=== PATIENT | male | born 1975 | race Caucasian/White ===

== ENCOUNTER 2023-09-27 14:31 | Outpatient (OUT) | payer OTHER, SELFPAY ==
--- NOTE | 2023-09-27 14:51 | XR_ITS ---
The [address] [address] Patient Name: MULU RODRIGUEZ MRN: [id number] date: 1975 Sex: M Assigned Patient Location: [facility] Current Patient Location: Accession/Order Number: [id number] Exam Date: 09/27/2023 14:57 Report Date: 09/28/2023 08:44 At the request of: SHAN PATTON Procedure: XR chest 2V EXAM: CHEST 2 VIEWS HISTORY: acute cough R05.1 TECHNIQUE: PA and lateral views chest. COMPARISON: None. FINDINGS: Small calcified right lower lung granuloma is seen, with calcified mediastinal and hilar lymph nodes. There is no focal lung consolidation, pleural effusion or pneumothorax. No peribronchial cuffing. Pulmonary vasculature is within normal limits. The cardiomediastinal silhouette is normal. There are degenerative changes of the spine. XR/XR chest 2V IMPRESSION: 1. No acute cardiopulmonary disease. No consolidation or effusion. Recommend followup imaging if symptoms worsen or persist. Electronically authenticated by: EMMA SPIVEY Date: 09/28/2023 08:44
== END 2023-09-27 14:32 | disposition home or self-care (01) ==
LOC: RAD 14:37
PROVIDERS: PCP Family Medicine; Visit Provider Family Medicine
DX: R05.1 Acute cough (principal)
CPT/HCPCS: 71046

== ENCOUNTER 2023-09-29 11:36 | Outpatient (OUT) | payer OTHER, SELFPAY ==
--- OUTSIDE RECORDS SUMMARY | 2023-09-29 11:43 | XMS_ITS | CCD ---
Author Name Unknown Address [address] [place] [address] [address] [place] [address] Organization [facility] Care Team Providers Care Group Worker Name Role Phone ELATTAR, OSAMA Admitting Unavailable ELATTAR, OSAMA Attending Unavailable SHAN GREEN Referring Unavailable ALIDAY, SHAN Primary Care Unavailable ID Procedure Practitioner Unavailab le RADHA, CONSTANCE Surgeon Unavailable ID Procedure Practitioner Unavailab JAME Funez Surgeon Unavailable HOY ., DR TORREZ Admitting Unavailable HOY ., DR TORREZ Primary Care Unavailable HOY ., DR TORREZ Attending Unavailable HOY ., DR TORREZ Attending Unavailable HOY ., DR TORREZ Admitting Unavailable HOY ., DR TORREZ Primary Care Unavailable HOY ., DR TORREZ Admitting Unavailable HOY ., DR TORREZ Primary Care Unavailable HOY ., DR TORREZ Consulting Unavailable HOY ., DR TORREZ Attending Unavailable KHUSHBU DÍAZ Consulting Unavailable HOY ., DR TORREZ Admitting Unavailable HOY ., DR TORREZ Primary Care Unavailable HOY ., DR TORREZ Consulting Unavailable HOY ., DR TORREZ Attending Unavailable Problems Problem Classification Problem Date Documented Da te Episodic/Chronic Other non-traumatic joint disorders (4 sources) Pain in right elbow; Translations: [PAIN IN RIGHT ELBOW] Onset: 02-02-2023 Episodic Residual codes; unclassified (4 sources) Obstructive sleep apnea (adult) (pediatric); Translations: [OBSTRUCTIVE SLEEP APNEA] Onset: 02-09-2023 Chronic Results Test Name Value Interpretation Reference Range Facil ity XR ELBOW RT MIN 3 VIEWSon XR ELBOW RT MIN 3 VIEWS EXAM: XR ELBOW RT MIN 3 VIEWS HISTORY: Pain of right elbow joint COMPARISON: None. TECHNIQUE: 3 views of the right elbow were obtained. FINDINGS: There is no evidence of an acute fracture. Small osteophytes arise from the radial head and coronoid process, and several calcifications are seen in the antecubital fossa. The joint spaces are relatively intact throughout. There is a mild joint effusion present. IMPRESSION: No acute fracture or dislocation. Some degenerative changes are present with small osteophytes. Multiple calcifications are seen in the antecubital fossa with a joint effusion. These are likely to be a loose bodies. Comparison with a previous study is recommended to verify stability of these findings. Electronically authenticated by: KHUSHBU DÍAZ Date: 2023-02-02 18:25 Normal [facility] Consent for COVID Vaccineon 02-12-2021 SARS-CoV-2 (COVID-19) RNA SEB+probe Ql (Unsp spec) [id number]#1. 00CD:127 Normal [facility] Consent for COVID Vaccineon 01-24-2021 SARS-CoV-2 (COVID-19) RNA SEB+probe Ql (Unsp spec) [id number]#1.0 0CD:127 Normal [facility] Consent for Treatmenton 01-02 Consent for Treatment [id number]#1.0 0CD:127 Normal [facility] Coding Summary.on 01-23-2021 Coding Summary. CD:[id number] Gh 0bWw+PGhlYWQ+YN7TRTSlK 93zkYSptT8BP7tKYA7IXKL WSEVHAT7JAP0pmVQ5KLrcV 2VybiAv MffhiMIuWN08VMu6BKT3aB ojDAcsdH6lrSQqF1i8NqWo DP68fK09PQqdMSOqXcV1Yj ZpbjsgbWFy D5hnZlDxdAPgVfy+PHRhYm xlIHdpZHRoPScxMDAlJyBz nPapVW6zXj3pINDsKOSfaK xhcHNlOiBj o0pzNNJbFNqjYZ3zxMtyF7 FqoWS2GCHsq7z7Bs62lZK+ FQUlBDO5fFqkSRcgj087Ma Vdo7ufZEI2 kPRvEShtDUT5C58eo0Z2TJ SgUSPpNEP4hMA2hC2keSvu ebleI2WroKQbVaE5EJJ3iM XgdV6hoZoh slvfoS2qIhx+J46FND1VJZ ZJZM5GOmp1L6ZkMfwuyED+ QL60MXPoFJ81rCBsxBHep8 ymaFm3GkUz ZLUgUTV8cNeaZOkpi3SbGT NzO88jgWUus3H1WSJlkAve kJQdKrQvkMM7oG0zOEobbk ifh4ylbqnd Wooml8luyi86wS26G55yPB efLNNpEAR2NKDeFZLrcHya st4jiE8kWz2+ARkim7nnh0 wsiIl2NjWh MDAzjpLwiYeeMAO7t9PwIs 25K9IudXmtx5AzNfg1hy61 fIBku8D7xUI0DMocOHIatW 5ySWrsDxH7 PLTqVkRpeH04aRMeUDnoYl 3mjSivzNbjSL3zLUTqsmoi MOKyeR7sWVUhdIIjmXihDU 4wNTBpbjtm p092IiKaMOE7ZXTndYLsY0 GkhN9qSfHoSUDoYRAcF3Sw gHPrJXbvY611RLasDsI4EB YdedJcM2Bt EFNmdOyrTpS3q5Z7Xp6Px9 BfxliyHNS3SXgvTIG9IuFq OjCtLiM9U1GzYnq5LLZqbP jiYN7sL8Ih FUHvcryxvzjtiKE7WMFvMJ PdlG72wCUrFKsdUt6hc4J4 h172ERNdAKIloK73Sk8bvF ogMTBwdCBU qC2axdcas4pxvrgmXjUjRZ XqZUf3LAv9TKFhjFbiAsIg YZY4UlF4WIJ9qZSjfO1dgF rzssvtaF7x Oyc+V56qcJ4nELJ6PGL4ct zaXMVwknLgYA38YW80K5Ff PjwvdGFibGU+PGRpdiBzdH rkOW0cNqUj i5gnz0MsGVtpB7PuIPUdET ihEoe8XOOwLDL1vVS6qD8e OWAeDHlrc1W4wVF9J1Kfcg Itny6qg6rt MUPmRUsfP89ilUWdq9H2BX FqvOF2NJJjxXvoRzScxS94 Oyc+QLEbiWdsn4JfNfqhm0 buz6ftmOv6 RvHcGVLregTmiCagHGR0j9 FmVc29K92zJBqgSFKrLTTz EZUmFVEezKjkji0gfT9sAw 8+PGNvbCB3 oCS3sT2dHEZcIdM8RXcdL3 54FqGtnFGlLutyj4kjo3oa eDz8JbPsAEBmjhGmkMjxBU H1y8VdSs70 C80pWXskOCPyLZZuSBZpJM DtzPgprf4laH6cQr5+PC9j g0pyjf44rI51qCQ+PHRkIH Q1lMgdKFfh PSFcbE4gWFqeWhT5GNIwTx GsjD06pZAlZGqrNw4rvMng rZsdWW2yYMCycffzo232Un Qmh4hoGNJs iALmWObxEBV2H97ng3B4XM IfVJNkZME6eVP5hR7xdUla bjogbGVmdDsgdmVydGljYW pqFQhfX880 IHRvcDsnPlBhdGllbnQgTm LpVUu4X8IiDvx5BBBxaXtq KE6eeCKaYThiIj5byUcgnA srFY4aOYAe qlvtd083JzHiq8gvGQNtxK UqNWlrTIQ3P83el2N7VMIp QKIzXWR7jBL7dO7ofEskmm ogbGVmdDsg raYgaUpiMPofWIlmE960SV RvcDsnPkJpcnRoIERhdGU6 NB91UJ98dWZpk3K3gSB4F1 BhZGRpbmct bkvgrFW6EMBeKZYukD91Iu 9erYslWz6iSURzWRZ0WLZk rNQjP6EbkF9zRsDcCNLyFF LgY2QfnVCd OIfiV993OVchEyH9OTNvru RwH7AoYQDztDwyRoF2f4M6 Fd0HC5I1HO60UT57xDLjq0 X0pTB5P9Aj RCKleeoqtetmzDJ2BSLaVQ OdwC70Bv4uzRztLo2nIFJi CTI4CQQrpWHmR9YruW9rOh AjMDAwMDAw D9CppIReJJwxT362UNqaYi X5HWFqvyYgZ4HiJNXnpAcv DfO1s0M0Gq4MSIz6QP46CV 78oSZsv0W7 zLN1B3VjFPTxalsjciiriC I5DQWmELMtsG75Dj2toSje Hx3sWQYvUBR3XBQuhEXsO2 LnuV8gFhNw SBPkQMVbA4AvvYBaEQfcW8 80ZKbtHuW9SUJvjrZmR9Ce HVDyrLayBoD9d1R7Wr8GYU DyCV56TFV6 yVH4MO81RM10W0TcGwsejP FibGU+PHRhYmxlIHdpZHRo UAgnQQFhHuRgxJlrVR2oJp 9yZGVyLWNv wCidwBMwDdKzh7pkCKFyTE srSG3pdCyrU2KqyXV9NRTc g3l3Qj57C30kL5IweJE+PG YliLE4tSD4 xZ0iWlOjBxE6FAwrG333Uv OdzFIaMezap4dqk2gdzQs8 JfH2ZKPtdgMljFlaWCJ6f6 TrRp09K50z IHdpZHRoPSIxNSUiIHZhbG waro8cwF6fUu8+PGNvbCB3 wEF3bC1yWtMcBcR9AYjoC7 49InRvcCIv Bvzfa0ldn2uzjCo7KwHyNJ GbvdRdbBjcAGE6k1AsZg02 N6QiyWiic8AgUgu9pp57wI Vfd0C8jAC5 Y2AcDKSsixwgqJNbkBjcQK 8iKPIvttleHUMxwF7sBGEa W3r7AyDbEsN6CJgzU9Veba E3XXFxbJPk KZnnOVY0Q41of3Z3CXXgMB UxYPF0bNR0qE1adFhpbxmb bGVmdDsgdmVydGljYWwtYW laR186BHIf rUkxZJHyjD2uQNFhwDVsdV xwKT0rPATwvfmtRyIRZo9O GRcrFTDIDBp6S8ZeYje3UK ExeNbgAZ6f fHXaEEivWm1cvXchwTlgZL 4zZNBjurjmLGPtaN0nTISq eCDnkAwkTC0cRDXzvjjzq8 84KbVjLBL4 RNBimKQhR8WhxY4xJhDhQB BqBUOkX5WvxYBhRYmnO596 IQdbIvR5WIXsfhNjF0ZtSX FsaWduOiB0 m8R5Me0wRy1tVK5tUCanRJ 66SK08aYMbl2J9mRY9X7Lb JZJtdvhncloysPO4JRVkIB PnpU86qYKq SItlCu6rr2U5o312VQHnPV QacM31Pw1noQklAEWutOXC qT6qrruhp1qjeietIsAzSQ GoHSn2NEu1 QIUbrOvoQlWcRRK1DyC7WW X4pQVagS3rrRbexhlgtC3h Oyc+DDrvONMkczH9N1MqMq r7VDGttImb PL9ijWCtVUymVj9kdPqhqS tjQQ0yZKJycfekMAUjaZ1u ABDwkWHpkYlpWF5uOMZvls myo445MwXm BMZ3AQEdoCNwM1PllM5pNv CeSKLcEYDeO5QodSEgBKxe A350YQvuOsD7IKQaqbGxM1 FsLWFsaWdu FpS6x8U9Vv9IMUsbXB10LT 90eDUnw4M2pKH6L3KvVLYl ippggdfuwTI6CRAnKFUajW 47cGFkZGlu Nl6ke7D6c356HGGdPENpoV 26Km3ffUuuOPVucEYTyP4e suuiu3zdfpksPeSmUOEcVF h5EFh5ATKx pMpnOdZhQDU6WuB9NAA6zT QovZ9ttZulfudarY7tCtd+ IeRuqELomO7nUM95VJ48J3 RyPjwvdGFi bGU+PHRhYmxlIHdpZHRoPS lvEUCzUfZyoDemLQ4eUw4i ZGVyLWNvbGxhcHNlOiBjb2 xsYXBzZTsg IM3zbDabW6KnuQN6FSIga4 m0Pi75D77bI3LzvZE+PGNv tYN0iIB3gN3iVvWvEfZ5BB gvH152WwCu vYMxHucan0nqe5qjuPt2Px GrQDJgagRdoGmmBII5w5Ks Ym02J42jMTvpQNVyKISbZT UiIHZhbGln my9xeK7gQn0+WUNqdZX4tO F4dP2cPdLzFlA0AMamC064 PjBftBQhMdzxR85bH4UwjB A+PHRyPjx0 VGRfnIglXS7awPGlOYacUx 2rKOP3NwRnHnMrDAtyJ6Go XIJqfynxhqkhvON1HKJjBE NktF38Jb1x sTinMg3zAYPiHXB5WNIabJ YjN9LbiB9oSoEuXGEbPNAk S7FtfEVeAKbxW105PXmsDz M2AFBwtwGd X4CyMKTxlNceHxF6c0X6Sa 3OrAtgbAGlLJ6yNwElSSs1 R0RkBgp4LLUcrExlPZ1bbY EgLUviDu2w dYcbmTezHJ9iBGWsevqbf1 80HsRbe2waCFSoaVTpAOkn EQA7E47xf4M1YRSxXWObSQ H2nJF9gH7x bGlnbjogbGVmdDsgdmVydG qzWXvqVAdkC697FGVmrQwl BbBAYsk8B4KqZog3UYUmuN ymOP2koYLi UAshNg0isDsfiRbmPC8eBB Yujcgon322LcBdq8dlBQJq eXTmDXhdZWA2Q78lq2C8GF MwMDAwMDA7 bSG1nA0cfJrwhvrpkVGctX wygeHigZhzSGenLPwoR547 CECmgOupJr2GBog1N5FtEt v4VYKdxOsj DN5liUSpFYznNp2gnMnynE niNY4rEYZglbaxn808YyHl r8dnUNArcTEbCPvbDWY4H5 7vk8H5ZXAc EDNwNFZ5sJT8oE4ouPuiql ogbGVmdDsgdmVydGljYWwt WVckA208PWPooKtbXzHpaV VyOjwvdGQ+ DQ31mp15E4MtNazrPpw9FS RhLYS3eRK0jX7yQIJaCCux i0V0yFI5F0VrohMali5xt7 xsYXBzZTog Y29s (more content not included)... Normal [facility] Operative Reporton 9 Operative Report MR#: [id number] [facility] Pt. Name: Jose Norris Room #: 0C Discharge 07/23/2019 Date: Birthdate: 1975 OPERATIVE REPORT DATE OF SURGERY: 07/23/2019 SURGEON: Constance Morrison MD BED LASTER: Rachel Tran M.D. PREOPERATIVE DIAGNOSES: 1. Right knee posterior horn and medial meniscus root tear. 2. Right knee chondromalacia. POSTOPERATIVE DIAGNOSES: 1. Right knee posterior horn medial meniscus root tear. 2. Right knee chondromalacia. PROCEDURE PERFORMED: 1. Right knee arthroscopy. 2. Right knee posterior horn medial meniscus root repair. 3. Chondroplasty. 4. Synovectomy of medial, lateral, and patellofemoral compartments. 5. Fat pad debridement. ANESTHESIA: General. FLUIDS: As per anesthesia records. ESTIMATED BLOOD LOSS: Minimal. DRAINS: None. SPECIMENS: None. COMPLICATIONS: None. IMPLANTS: 1. Arthrex FiberLink stitches x2. 2. Arthrex 4.57 mm SwiveLock anchor. EXPLANTS: None. OPERATIVE INDICATION: The patient is a 43-year-old male patient who presented to our office, status post work-related injury with chronic right knee pain and he had an MRI that showed a posterior horn medial meniscus root tear as well as mild osteoarthritic changes and chondromalacia of the knee. The patient has failed conservative management and for that reason he was deemed an appropriate candidate to proceed with the above-mentioned procedure after all benefits and potential risks of the procedure have been explained to the patient. DESCRIPTION OF PROCEDURE: The patient was greeted in the preoperative holding area by me. The patient's right lower extremity was marked with my initials. Informed consent was obtained and all questions were answered. Prophylactic antibiotics were administrated. The patient was taken back to the operating theater, placed in supine position on the operating table. Anesthesia was induced without complications. The right lower extremity was prepped and draped in a normal sterile fashion. A time-out was performed confirming correct patient, correct procedure, and correct laterality. We began by exsanguinating the limb with Esmarch, inflating the tourniquet up to 300 mm Hg. We then proceeded to do standard arthroscopy anterolateral viewing portal. This was created using a 1 cm skin incision and followed by introduction of the 30-degree arthroscope into the patellofemoral compartment. Inspection of the patellofemoral compartment reveals evidence of grade 3 chondromalacia of the lateral patellar facet as well as grade 2 chondromalacia of the medial patellar facet. There was also grade 1-2 chondromalacia of the trochlear groove. Inspection of the lateral gutter revealed no evidence of any loose bodies as well as the medial gutter. Arthroscope was then driven into the medial compartment. We proceeded with establishing our second working portal. This was an anteromedial portal created using a 1 cm skin incision under vision using a spinal needle. We also created a capsulotomy over the spinal needle to facilitate passage of the instruments. We then inspected the medial compartment and it was noted that there was grade 2 chondromalacia of the medial femoral condyle. We also probed the posterior horn of the medial meniscus and root tear of the posterior horn of the medial meniscus was confirmed. We then performed extensive synovectomy of the medial compartment and chondroplasty of the medial femoral condyle. We then turned our attention into the intercondylar notch where fat pad debridement was done and inspection of the intercondylar notch revealed evidence of partial injury of the ACL, with evidence of ACL insufficiency, the PCL was found to be intact. We then performed synovectomy of the lateral compartment. The arthroscope was then driven into the lateral compartment in figure-of-4 position of the knee where there was no evidence of any chondromalacia of the lateral compartment and the lateral meniscus was found to be intact and was probed and was found to be stable to probing. Attention was then turned back into the medial compartment and the decision was made to proceed with a posterior horn medial meniscus root tear. The knee was brought into a valgus position and it was noted that the medial compartment was very tight and we performed pie crusting of the medial collateral ligament, which allowed us to open the medial compartment. We then proceeded with debridement of the bed for the posterior horn medial meniscus root tear using the arthroscopic shaver. We then proceeded with passage of 2 Arthrex FiberLink stitches through the root of the posterior horn of the medial meniscus. This was achieved using the Knee Scorpion. After passage of the stitches, they were put through the lateral portal. We then proceeded with creation of the tunnel for the root repair. This was achieved using the Arthrex meniscal root repair guide set at 5 mm where the edge of the guide was hooked on the posterior border of the tibia and a socket was created through a skin incision over the anteromedial border of the proximal tibia. After creation of the socket, a passing stitch was passed through this socket and the previously passed sutures through the meniscus root were then passed through the passing stitch retrieved through the anteromedial working portal. The sutures were then shuttled through the previously created tunnel and pb over the anteromedial aspect of the proximal tibia where the skin incision was made. We then passed the two FiberLink stitches through the 4.75 mm Arthrex SwiveLock anchor. We then created a tunnel for the SwiveLock anchor using the specific drill bit as well as tap. Then under vision, the SwiveLock anchor was inserted while maintaining tension on the FiberLink stitches and one introducing the scope into the knee to ensure appropriate tension of the root repair. This was confirmed under fluoroscopy and SwiveLock anchor was inserted and we made sure that it flush on the tibial border. We then tied the two FiberLink stitches to each other over the SwiveLock anchor. Chondroplasty of the patellofemoral compartment using arthroscopic shaver and ArthroCare wand. This concluded the end of the procedure. We the proceeded with closure of the skin incision for creating the tunnel over the proximal medial tibia using 3-0 Vicryl stitches and 3-0 Novafil stitches and arthroscopy portals were closed with 3-0 Novafil stitches as well. The tourniquet was dropped and tourniquet time was 2-1/2 hours. The wounds were then cleaned and sterile dry dressing was applied with Xeroform, 4 x 4, ABD, Webril, and Tristian wrap. A Polar Care was applied to the knee and hinged knee brace locked in extension was also applied to the knee. The patient was then subsequently awakened from anesthesia without complication, transferred to PACU in a stable condition and subsequently discharged home in a stable condition. POSTOPERATIVE INSTRUCTIONS: The patient will be nonweightbearing in the hinged knee brace locked in extension for 6 weeks. The patient was on blood thinners and will be taking his Plavix as well as aspirin. He was also prescribed narcotics for pain control postoperatively and will follow up in clinic within 2 weeks. Electronically Signed by: Constance Morrison MD 08/05/2019 08:12 P Constance Morrison MD Date Dict: 07/24/2019/09:31 P/Constance Morrison MD Date Trans: 07/25/2019 05:33 A/ham [id number] cc: Shan Green M.D. [address] [place] [address] Normal [facility] POC GLUCOSE LABon 07-23-2019 Glucose [Mass/Vol] 90 mg/dL Normal 70-100 [facility] Comment on above: Performed By: #### [id number] #### [facility] [place] [address], [facility] Encounters Encounter Date Encounter Type Care Provider Facility Start: 02-09-2023 End: 02-10-[address] SHAN GREEN . Facility: Start: 02-02-2023 End: 02-03-[address] SHAN GREEN . Facility:[facility] Start: 02-01-2023 End: 03-02-[address] SHAN GREEN . Facility: Start: 05-30-[address] SHAN GREEN . Facili ty:[facility] Start: 07-23-2019 End: 07-24-2019 Patient encounter procedure OSAMA ELATTAR Facility:[facility] Procedures Date Procedure Procedure Detail Performing Clinician Start: 07-23-2019 ANESTH KNEE JOINT SURGERY JAME PIERCE Start: 07-23-2019 KNEE ARTHROSCOPY/SURGERY OSAMA ELATTAR Start: 07-23-2019 KNEE ARTHROSCOPY/SURGERY OSAMA ELATTAR Payers Date Payer Category Payer Unknown [id number] [id number] 1975 Unknown [id number] 2.16.84 [id number] 1975 Unknown [id number] 2.16.84 [id number] 1975 Unknown [id number] 2.16.84 [id number] 1975 Unknown [id number] 2.16.84 [id number] 1961 Unknown [id number] 1961 Unknown [id number] 1961 Worker's Compensation [id number] Summary Purpose Family History No Family History Records FoundNo Family History Records FoundNo Family History Records Found Advance Directives No Advanced Directives Records FoundNo Advanced Directives Records FoundNo Advanced Directives Records Found Additional Source Comments (unrecognized sect ion and content) No Status Records FoundNo Status Records FoundNo Status Records Found INFORMATION SOURCE (unrecogn ized section and content) DATE CREATED AUTHOR 08/06/2019 [facility] DATE CREATED AUTHOR AUTHOR'S ORGANIZ ATION 05/10/2021 [facility] DATE CREATED AUTHOR AUTHOR'S ORGANIZ ATION 03/11/2023 [facility] FOR RECORDS PERTAINING TO PATIENTS WHO ARE OR HAVE BEEN ENROLLED IN A CHEMICAL DEPENDENCY/SUBSTANCEABUSE PROGRAM, SOME INFORMATION MAY BE OMITTED. This clinical summary was aggregated from multiple sources. Caution should be exercised in using it in the provision of clinical care. This summary normalizes information from multiple sources, and as a consequence, information in this document may materially change the coding, format and clinical context of patient data. In addition, data may be omitted in some cases. CLINICAL DECISIONS SHOULD BE BASED ON THE PRIMARY CLINICAL RECORDS. [employer] [facility]. provides no warranty or guarantee of the accuracy or completeness of information in this document.
[2023-09-29 11:57] LABS: Estimated Average Glucose 108 mg/dL; Glycohemoglobin A1C 5.4 % (4.5-6.2)
[2023-09-29 12:14] LABS: Alanine Aminotransferase 32 U/L (16-63); Albumin Level 3.5 g/dL (3.4-5.0); Alkaline Phosphatase 101 U/L (46-116); Anion Gap 12.8; Aspartate Amino Transferase 28 U/L (15-37); BUN Creatinine Ratio 11.6; Bilirubin Total 1.1 mg/dL (0.2-1.0); Carbon Dioxide 28.6 mmol/L (21.0-32.0); Chloride 105 mmol/L (98-107); Cholesterol 148 mg/dL (<=200); Estimated GFR (African America >60 (>=60); Estimated GFR (Non-African Ame >60 (>=60); Free T3 3.04 pg/mL (2.18-3.98); Globulin 3.6 g/dL; Glucose 101 mg/dL (74-106); HDL Cholesterol 37 mg/dL (40-60); Potassium 4.4 mmol/L (3.5-5.1); Sodium 142 mmol/L (136-145); Thyroid Stimulating Hormone 0.548 uIU/mL (0.358-3.740); Total Protein 7.1 g/dL (6.4-8.2); Triglycerides 84 mg/dL (<=150); VLDL CHOLESTEROL 16.8 mg/dL
[2023-09-29 13:03] LABS: Free T4 1.16 ng/dL (0.76-1.46)
[2023-09-29 13:12] LABS: Prostate Specific Antigen Scrn 0.53 ng/mL (<=4.00)
== END 2023-09-29 11:37 | disposition home or self-care (01) ==
LOC: LAB 11:37
PROVIDERS: PCP Family Medicine; Visit Provider Family Medicine
DX: Z00.00 Encounter for general adult medical examination without abnormal findings (principal)
CPT/HCPCS: 36415; 80053; 80061; 83036; 84439; 84443; 84481; G0103

== ENCOUNTER 2024-02-15 09:55 | Outpatient (OUT) | payer OTHER, SELFPAY ==
--- OUTSIDE RECORDS SUMMARY | 2024-02-15 10:19 | XMS_ITS | CCD ---
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 00CD:127 Normal [facility] Consent for COVID Vaccineon 01-24-2021 SARS-CoV-2 (COVID-19) RNA SEB+probe Ql (Unsp spec) [id number]#1.0 0CD:127 [facility] Consent for Treatmenton 01-02 Consent for Treatment [id number]#1.0 0CD:127 [facility] Coding Summary.on 01-23-2021 Coding Summary. CD:[id number] Gh 0bWw+PGhlYWQ+RZ6CCRJdW 54ijPUowM3VF7nBUK6SFLY XTZESVA8ECK8qeFH7JCljG 2VybiAv LesvrKQbUT83NBh8SJU0oN yvUVwbsQ6hmDXvJ5n8PuFn IL17tS77RQflENDfDiS4An ZpbjsgbWFy H0ptAoBhoMHhXck+PHRhYm xlIHdpZHRoPScxMDAlJyBz oWvoSD6wVy2vLSJbKDBjpF xhcHNlOiBj n6haAPSaJZciMV6roDpfO3 GjlDQ6SKUpi1n8Nz22aEP+ LBHhAPW3hKbjVXlhr999Yj Akh4imXNE1 cBAaNHpcMYL5M04tf0J4WZ GrFAOwQQG0hKY7iL2pvWwe iufpW7MfiTDcRdW9YNC9qO ShwV8vhBzq yhjrkA1dTyw+D91VUG7RXS XDZP9ELaq9W6RhQfnmeBE+ SQ51GKBrXC73bTZavYUln1 xzhYp4ZkWa FFKvFAE1fCimEVzdg7JnRT WzD67roIGnv3H5FCFunXoq pMOjHaWegVG2yV5hCJgcky ptj0falgfj Iwbhc1byly78iE71O88rGI kkOGGvVID2MFQoJQGfpSes kg8fgF0aMk5+QKsmw7cxe1 cnjYl2RoLj BKKnxxQurXfvINA7w7BeNe 17K8VlqSlup3MnYsl7ys29 zKLim9A2gUB3KQvvFUZspC 5mELqkTdD1 ILPoWhBfgM22qOVjJQdmXw 7ekIuhhJneEM1fDOUrgkbu DSRvgF6yTDZraSHdvDjdPS 4wNTBpbjtm g442VqHnHMJ6CGSgnYTjC0 GpoH4cRwJaEWAjSYLoQ6Px wLWnBVywL338VBuoFoH9DE YmraQpE8Mm AYOvaVewOtA1y9R4Ha9Ay9 UizrdaSGX3VNwyANQ8GxJq JoEwSyA9Q5NkJdd3JSXcsF kqAQ8oA4Fc NBIjonrxzibutTY7EMAgNS OwyW04tGZfMRogZv1ux6H9 m221BYQjNREwxA17Ce9yaS ogMTBwdCBU sG2hugmhd4dffiqzPkNgBJ GvVFr6ULy7RKBocVypQlDd CZL4BpW8SQS2cAEqeX4oxP hrhzqwhU4c Oyc+X44ltB5kZPZ6YLC9jh yvXQKesvRrXL36MB82V2Ap PjwvdGFibGU+PGRpdiBzdH ocMW5eZhGi j1mkr1HrPPyfZ9UsDBDhCQ tvIqu7PCAgBHD0rPP4yS7m WTGnNJsaz6M7mWK4V6Npnh Yojl3wk5fp XCMtUXoxZ02tpIImu7I8BQ WyuGU8QADlhMmaQtEaeH88 Oyc+FTKvtRkno5PfJmhcl2 gcs3lizEt2 CxAdLZCljfSolDtpNCC6f9 MwIw37L34lXQbeSOXwDXAy VVDwHIJvpEdjuv1xkJ7dGl 8+PGNvbCB3 pHV6yR2mLSJpOtW3TVorD7 97OpLlwOOvSrftk5pft6jk nNo2DlNiBSVsjlEsvXzaCQ W5c7XiJb26 I93bKSzuGBLuQFPsHFQzRW YsgDyyeg4sdS6cUq2+PC9j w6okul80sD84cQU+PHRkIH B7gBllSUyv UOSudJ8aXJegXfG4GJCoMt WbcO78hLAlAYhsIl3jqRwk kHxmHF4bDVZobffbq387Iv Obd4rtKRVu eJWfKIopLNQ1K15sx2D1UC CkVCRtMOD7eWU5hT4ebZgi bjogbGVmdDsgdmVydGljYW xaOXzzY589 IHRvcDsnPlBhdGllbnQgTm SxRNw8W0CyEjb5AOJsxTad PV7anTHwGMjbFo7kbThzqJ ehWS8hGVCr smiio273RdYiw5spXUEarH NoJLjpQVQ1I12ct3U7EIVn JYUwQNL6oUC1mZ5vmQoaxm ogbGVmdDsg sdOcuXkhAQrbRQmdM192YS RvcDsnPkJpcnRoIERhdGU6 WP50AU61cMArw0P5qAQ4K9 BhZGRpbmct mpjlpFB7IEUmUSSqcE24Qu 7fjOkoNk3yRZAaZTO8JVIn tFVwU0SglC5bDeYeKSKgHZ KoZ0LxhTMt FIsoK780RIqxFeS2WZWcbl NwP5EnEOAurPizXqM5d9I6 Ds4UD8F2KK85AX29jWNat5 B3vTM6J7Hd AVMcsouiwmevbHN4SKCcGW JsbK72Nx8mnFtsVx9zYVKl TJA8YJRyzQNzR1TlmR2yWg AjMDAwMDAw G5TwiQKeUBoaB761DIqyXa U1DONzcgOjY1TaLCUddNzr MfK0n5J8Wu0USNs2MH04BF 91aVHmj1B4 zGS5Q5OcSAXsgmngjvofgL K4WRDjVYGapZ79We6glWyq Ec3xDKXnIOG3EZSprDExX6 CbzO8jPsOt XTJnLLVvM5IkdDEeVByeY1 28TLewQxE0XZHkveYrU3Eq HLLtyXltBzC4b2H2Vs7SWF UlJY09QIT6 kGH5ZZ60DG34W3NiBxszhP FibGU+PHRhYmxlIHdpZHRo JSefIDTqNpIsfNkvGM8lFf 9yZGVyLWNv pHtfyUEjIwStk7nxBHEpGY goTZ7kwIagX4UuiNJ8FLYz k9c4Sf14P68qW7DynNN+PG TgeCN8wNA8 qF6oKtKiHiL4UQtkA319Bc NuuQDjXswrz3dnr0prvJh6 OuE6SWCqxeIijIntTEJ7e2 JvNk39P88q IHdpZHRoPSIxNSUiIHZhbG mevz9daQ4oAh4+PGNvbCB3 vPL7wI2yLxJkJfQ6RLpjC1 49InRvcCIv Uflcv3tgn6pepZg2XzXxRD HrsvWxcNjvZIX1g3LcDz47 M9CajLxxr4PtInv6xa06hP Fiq3W5nHQ4 H3MaHGFahwmsyHHnjIeoNZ 9lBARwpnxcWRMciT3oXWZq F9x8GlBqTeX3CGsoN8Ttzq M8NJIlbYHa MEutIOI0W70aq6K8VPHjBC XiIXH3qRJ4dX8qiMypifng bGVmdDsgdmVydGljYWwtYW gwS649LHHb fKnjYVJqfV0bNNHrkBZnnB cpBP9uCHIpicihFrJKWs4C CHsbIAXNLTq9Z8AyUof4GC DtbFhvEO7c eTBhNQndIp9dfFxacLwdQS 0qZOMebhlqQBIpyG6zSKKy lNCtzIzfDJ9vEBLltjmtg4 38UiGbKNX0 WNUneULmB7JleY3zClKrXU IiBDXwW9LcjUWhFTfxV553 YCqxEdW8LVWlquBuN3QyOB FsaWduOiB0 u8X8Wb9lBx7gRU5vOEvxZQ 90RT75yWLdk1D7uMM3T5Av BSGsacipefjcxHB8QSKuJI CjcT53xNHz LGnfQp2sd5V9k412KMRrJV UtjN25Od6dkZcsLPUuoDFQ hW5berpgp2libdxpSdZdQB OgKPw5MQa6 CMQalLpuNmZaPKT6HmD9YW M6rJSgbP9dlYfmetokbS2j Oyc+HLvtTERkmqU3E0CuMp e6OJApnWer KB5yiSVlUDmoJl1orLnisK knII5kROBoobioBVMgzL8x QPJoeEFuiOajLO6aEGSrhh qdw426JwAu ALM1VBMtrCKyS2VeuU2eKw QvZGZlMJMhW5FasUNmLElj E301WFilMqF0XDBhxgVhM0 FsLWFsaWdu ZmL5x0Z1Tf4AOTbmKR71UC 63vIGbu4V6eWR8K6NuWYQm ksbizqibgKV4RHBfNIEtsS 47cGFkZGlu Yl5zs6U7h625SRBcMUKgyD 84Pz8ksPdzMGTqsGAKnO3w oagfz2ytuairLeFtAQWdOC b6QRu3ZWFi iMutSgYfPIN0UoP5CSV6gA PjuN0aeGbkxbtnhR1xZza+ FyMjdBWhzZ2nNZ45EW61C8 RyPjwvdGFi bGU+PHRhYmxlIHdpZHRoPS usRCHhPaUpnFztXW5gXz9u ZGVyLWNvbGxhcHNlOiBjb2 xsYXBzZTsg KD7xhQwxO9SrdZS7RQRia1 c6Em72Z64cL8LczDL+PGNv lPD8xBJ8vI2tXdTeOvV4XQ jhE982LcGf vNRaPbcjb5puk2wbiSr3Bj KrFDRgxvUpeLriGPU8c4Jk Vh61L18dABgnJZYzNRNzXT UiIHZhbGln zs7xeK6cHy9+YJAozES7dV R4lA4wSbDzRxQ6XHzkP606 WiIejKJoRfwfU49hW6BwdS A+PHRyPjx0 TIRpxHeuKQ2zqRTcKJjoUd 7wKEJ3GmVpXyFiRZdpS2Ul SJTxtztuellsiCV5IRQgGY QucV55Ke5h aRtxLa4pXHTjVRU2TOXyeY XoP8RjmJ3tJpTgEJDdCBCt U9JyzEVwTYtkU952ULdzCj F9MRCgzpVh D2RsXYSafFavJmC6c3B8Xj 3ElKelsOCdPO3rXnGzREm1 K8PcIzb0PVStkHxzFX7ymH ThMQiyWi2d nJfbxQbrRW5rKEGzufcfy3 57IqNvg8wsJYXhdZNyMExe BXT6T44hf1Z0YIBcVAHxFP J0sDS6vN1c bGlnbjogbGVmdDsgdmVydG xeYTaiIBexW493AMWbnCll MoQPEuo1O5OzUnz4EUIukO voMQ6rdYLe DSibRz9ymDcsiNazKZ0hUK Dtartyg512OuGnt7tkFQUl iKLgXXroNSU6D85bo1F8UA MwMDAwMDA7 bXX1fG1wqIosvedxwFRrkF slibClbJnrURocQQygG199 DZJvgAppHb7KSci0D4CdRe z8EUJpdTuv DX7mfVKoCMyvMz6ifKdpzM gwXW0gPWUcblelq492DlNj y8zwUDOtrHDjQIyeMQP5A7 3vm4V0FAFn BDGbNDC7rDJ4hQ8izAydyb ogbGVmdDsgdmVydGljYWwt ORyaL737HMZgmPkcBpXngO VyOjwvdGQ+ SZ21us98W4MdPmavRcp1XZ FjRIW1mCT5yL7iAQAeKPph o6D9nEF0R4YyqzKkvb0ul8 xsYXBzZTog Y29s (more content not included)... Normal [facility] Operative Reporton 9 Operative Report MR#: [id number] [facility] Pt. Name: Jose Norris Room #: 0C Discharge 07/23/2019 Date: Birthdate: 1975 OPERATIVE REPORT DATE OF SURGERY: 07/23/2019 SURGEON: Constance Morrison MD [employer] OPERATOR: Rachel Tran M.D. PREOPERATIVE DIAGNOSES: 1. Right [...] Morrison MD Date Trans: 07/25/2019 05:33 A/ham DN_JN:[id number] cc: Shan Green M.D. [address] [place] [facility] [address] [place] [facility] POC GLUCOSE LABon 07-23-2019 Glucose [Mass/Vol] 90 mg/dL Normal 70-100 [facility] Comment on above: Performed By: #### [id number] #### [facility] [address] [place] [address], [facility] Encounters Encounter Date Encounter Type Care Provider Facility Start: 02-09-2023 End: 02-10-[address] SHAN GREEN . Facility:[facility] Start: 02-02-2023 End: 02-03-[address] SHAN GREEN . Facility:[facility] Start: 02-01-2023 End: 03-02-[address] SHAN GREEN . Facility:[facility] Start: 05-30-[address] SHAN GREEN . Facili ty:[facility] Start: 07-23-2019 End: 07-24-2019 Patient encounter procedure OSAMA ELATTAR Facility:[facility] Procedures Date Procedure Procedure Detail Performing Clinician Start: 07-23-2019 ANESTH KNEE JOINT SURGERY JAME PIERCE Start: 07-23-2019 KNEE ARTHROSCOPY/SURGERY OSAMA ELATTAR Start: 07-23-2019 KNEE ARTHROSCOPY/SURGERY OSAMA ELATTAR Payers Date Payer Category Payer Unknown [id number] [id number] [id number] 1975 Unknown [id number] 2.16.84 [id number] 1975 Unknown [id number] 2.16.84 [id number] 1975 Unknown [id number] 2.16.84 [id number] 1975 Unknown [id number] 2.16.84 [id number] 1959 Unknown [id number] 1959 Unknown [id number] 1961 Worker's Compensation [id number] Summary Purpose Family History No Family History [...] AUTHOR 08/06/2019 [facility] DATE CREATED AUTHOR AUTHOR'S ORGANIZ ATION 05/10/2021 [facility] DATE CREATED AUTHOR AUTHOR'S ORGANIZ ATION 03/11/2023 [facility] RECORDS PERTAINING TO PATIENTS WHO ARE [...] BE BASED ON THE PRIMARY CLINICAL RECORDS. [facility] [employer] [facility]. provides no warranty or guarantee of the accuracy or completeness of information in this document.
[2024-02-15 10:45] LABS: Basophils Absolute Auto 0.1 10^3/uL (0.0-0.1); Eosinophils Absolute Auto 0.3 10^3/uL (0.0-0.7); Eosinophils Percent Auto 3.5 % (0.9-7.0); Hematocrit 43.4 % (42.0-54.0); Hemoglobin 14.6 g/dL (14.0-18.0); Immature Granulocytes Abs Auto 0.01 10^3/uL (0.00-0.03); Immature Granulocytes Pct Auto 0.1 % (0.0-0.5); Lymphocytes Absolute Auto 1.5 10^3/uL (1.2-3.8); Lymphocytes Percent Auto 16.5 % (20.5-60.0); Mean Corpuscular HGB Conc 33.6 g/dL (29.9-35.2); Mean Corpuscular Hemoglobin 29.9 pg (25.9-34.0); Mean Corpuscular Volume 88.8 fL (80.0-94.0); Mean Platelet Volume 9.1 fL (9.5-13.5); Monocytes Absolute Auto 0.8 10^3/uL (0.3-0.8); Monocytes Percent Auto 8.5 % (1.7-12.0); Neutrophils Absolute Auto 6.4 10^3/uL (1.4-6.5); Neutrophils Percent Auto 70.4 % (43.0-75.0); Platelet Count 299 10^3/uL (150-450); Red Blood Count 4.89 10^6/uL (4.70-6.10); Red Cell Distribution Width 12.6 % (11.0-15.0); White Blood Count 9.1 10^3/uL (4.0-11.0)
[2024-02-15 11:38] LABS: Estimated Average Glucose 105 mg/dL; Glycohemoglobin A1C 5.3 % (4.5-6.2)
[2024-02-15 11:46] LABS: Prostate Specific Antigen Scrn 0.64 ng/mL (<=4.00)
[2024-02-15 11:58] LABS: Alanine Aminotransferase 35 U/L (16-63); Albumin Globulin Ratio 1.1; Albumin Level 3.6 g/dL (3.4-5.0); Alkaline Phosphatase 103 U/L (46-116); Anion Gap 9.9; Aspartate Amino Transferase 23 U/L (15-37); Bilirubin Total 1.2 mg/dL (0.2-1.0); Calcium 9.2 mg/dL (8.5-10.1); Carbon Dioxide 31.1 mmol/L (21.0-32.0); Chloride 106 mmol/L (98-107); Chol HDL Ratio 3.1; Cholesterol 129 mg/dL (<=200); Estimated GFR (African America >60 (>=60); Estimated GFR (Non-African Ame >60 (>=60); Globulin 3.3 g/dL; Glucose 94 mg/dL (74-106); HDL Cholesterol 42 mg/dL (40-60); Sodium 143 mmol/L (136-145); Thyroid Stimulating Hormone 0.627 uIU/mL (0.358-3.740); Total Protein 6.9 g/dL (6.4-8.2); Triglycerides 65 mg/dL (<=150)
[2024-02-16 04:10] LABS: CA 19-9 7 U/mL (0-35); CEA 2.6 ng/mL (0.0-4.7)
[2024-02-16 09:11] LABS: Insulin 6.4 uIU/mL (2.6-24.9)
[2024-02-16 15:26] LABS: Occult Blood Negative
== END 2024-02-15 09:56 | disposition home or self-care (01) ==
LOC: LAB 09:59
PROVIDERS: PCP Family Medicine; Visit Provider Family Medicine
DX: Z00.00 Encounter for general adult medical examination without abnormal findings (principal)
CPT/HCPCS: 36415; 80053; 80061; 82378; 83036; 83525; 84436; 84443; 84481; 85025; 86301; G0103; G0328

== ENCOUNTER 2024-02-17 08:04 | Outpatient (OUT) | payer OTHER, SELFPAY ==
--- NOTE | 2024-02-17 08:06 | CT_ITS ---
[address] [address] Patient Name: MULU RODRIGUEZ MRN: [id number] date: 1975 Sex: M Assigned Patient Location: CT Current Patient Location: CT Accession/Order Number: [id number] Exam Date: 02/17/2024 08:10 Report Date: 02/17/2024 09:46 At the request of: SHAN PATTON Procedure: CT lung screening low-dose EXAMINATION: CT lung screening low-dose HISTORY: Nicotine Dependence F17.200, Well Adult Z00.00 COMPARISON: Plain x-ray 09/27/2023 TECHNIQUE: Axial, Coronal, and Sagittal images were created without the administration of IV contrast material. Dose reduction techniques were achieved by using automated exposure control and/or adjustment of mA and/or kV according to patient size and/or use of iterative reconstruction technique. FINDINGS: LUNGS: Numerous bilateral solid calcified and noncalcified pulmonary nodules are identified the largest noncalcified nodule is in the right lower lobe axial image 94 measuring 7 mm in diameter. PLEURA: No mass, effusion, or pneumothorax. VASCULATURE: No abnormality. NEREYDA: Calcified right hilar lymph nodes MEDIASTINUM: No pathologic lymphadenopathy CARDIAC: No enlargement or pericardial effusion. CORONARY ARTERIES: Coronary calcifications are moderate. AORTA: No aortic aneurysm CHEST WALL: No mass or axillary adenopathy BONES: No bone lesion or fracture. LIMITED ABDOMEN: No suspicious findings. Limited images of the upper abdomen. OTHER: Negative. CT/CT lung screening low-dose IMPRESSION: Bilateral scattered subcentimeter calcified and noncalcified pulmonary nodules. The largest measures only 7 mm slightly below the limits of detectability for PET scan. Short interval follow-up is recommended LUNG SCREENING: Lung-RADS Category 3- Probably benign. Probably benign finding(s)- short term follow up suggested; includes nodules with a low likelihood of becoming a clinically active cancer. Six month LDCT. Electronically authenticated by: MITESH SPRING Date: 02/17/2024 09:46
--- OUTSIDE RECORDS SUMMARY | 2024-02-17 08:07 | XMS_ITS | CCD ---
Author Organization [facility] Care Team Providers Care Manager Social Media Name Role Phone ELKYMR, OSAMA Admitting Unavailable ANAR, OSAMA Attending Unavailable SHAN GREEN Referring Unavailable HOY, SHAN Primary Care Unavailable [place] Procedure Practitioner Unavailab le ELATTAR, OSAMA Surgeon Unavailable [place] Procedure Practitioner Unavailab JAME Funez Surgeon Unavailable [...] by: KHUSHBU DÍAZ Date: 2023-02-02 18:25 Normal [facility] Consent for COVID Vaccineon 02-12-2021 SARS-CoV-2 (COVID-19) RNA SEB+probe Ql (Unsp spec) [id number]#1. 00CD:[address] [facility] Consent for COVID Vaccineon 01-24-2021 SARS-CoV-2 (COVID-19) RNA SEB+probe Ql (Unsp spec) [id number]#1.0 0CD:127 [facility] Consent for Treatmenton 01-02 Consent for Treatment [id number]#1.0 0CD:127 [facility] Coding Summary.on 01-23-2021 Coding Summary. CD:[id number] Gh 0bWw+PGhlYWQ+OD1SLNJoF 53zsOOcxN9HO3tRAG7MTSF WJUUBKI4VKU9kmMG9DDdxP 2VybiAv EzcssBNwBE16MSl8QRJ0lZ qtGNadwH1ffBCtA2a2WyGy KV60mI26RKbmHJJaKtF6Cp ZpbjsgbWFy N7mpVcZscSNaSeq+PHRhYm xlIHdpZHRoPScxMDAlJyBz oHwtUN8yWn9pIGRyNTGmfG xhcHNlOiBj e4toVMMyGCdcMP0ivWbtS0 PyrLQ0BYLkt4w0Ze28jGW+ TKFrPCZ4xQspVEams295Ka Vyy6njXEZ0 mPWgXKaoPNA7E54lx9W0KZ VjZEIjHWH3lFL7nJ4skYov qwwkK0PigITtUuS8SUA5qF DiuT9zgYrs uwemiC8tRmm+I72CJW1UKJ RWSZ3CWav2X8OfAtycuDJ+ SG25DWUoZT38dJJybUTdj6 sgeTr9ScXa QYGfSOO9yIqqHGfkt6TuXA PuJ02siBZxi1Q0TSEedWso bHZrKhUurGZ0kC4fYYgsho xcu3qqahrj Nqrzm9iazy02tV61L68uXC oeOKZhHST0XVTlFDQdzTfs ja7fpS3xJk7+VFaex1tav5 joiGc5EuZo RSLiqcLpxUhkRBP8n0MiAv 50T1BidUbmo4ZoFis9we28 yIJlm3X6dAE9PXngXDJtrT 0bJRzuSkB0 VFTwUeUbfX41zEGtIMlgEq 4njYienGdfLQ3wDKVggxkc TBSajS5tAGVfdCAzjYwrFF 4wNTBpbjtm w432YxCxOFZ0RVXvtYSiX4 WshD1jWqZnLWFmSFBwF0Dr jPQrHTuqQ620IPctPbK0MQ FymeMeL1Qk BCIjmMbaIyS4y2O7Ez6Be1 DgmwplEFK3CRsrLFE0SoLl RxRqCgZ3B3GoNlw2MHEgvO cgFE5cO9Is UJWtcfpaualcdTB8CCTiAU XzcZ48iLBfTOypQg5ab5I3 i953SFPsZTMijC07Nt1ujZ ogMTBwdCBU rT7hubbjk4wksvlfKeKqAI FkVIi8UBy2CLNqkEwxKtMc OHQ0UhU5OUA4eCButS8qnT lgjkxmuR3c Oyc+U93fgZ5cRDL6JSR0rs odXZEzlxSfIZ06ZS14B3Cd PjwvdGFibGU+PGRpdiBzdH vsPZ6cFgSj e7vmp7MwPHcuT0QbWVGyMK ccTuh7KLWzPEZ7aIJ7dY7o EQDiIUubs9Q5gGC8M4Fcax Vvpy6zh4yf WJZmSYxfJ81xcOOxb6P1PG BnlRT7EUKdhSvsDdGaoH85 Oyc+NLBzzPtqk9KkTglgt9 zti8dpjWi0 GwMoGEVphdUqsOhaPPD3w9 TmDq42S34hWVyhOXQmECBi KDVtQLGtaSqiyp3ahO6nVx 8+PGNvbCB3 gRN2vR1tZTPsIhN8RGwxQ8 45DyOrxHHuLheiv6sep8tn dNm0UrCtESGesaLqcJopSP L1l1TxIn98 B05iZFibZOIvTIQuHTLxPF UhoZuoao1pdG3pGd9+PC9j s0fdag23nT44pOA+PHRkIH S9eRnuSEjj FFClbU0tYWidJqO6PNSwLq VckP93tUDxGBrcIn2paDwp mTykPF8cWYHygnkyi187Su Cxf5etHREg kYVnNZluOPP2C01ay9H4NU NwSULrQUK7yDS9sD2voNbx bjogbGVmdDsgdmVydGljYW twPAhtK765 IHRvcDsnPlBhdGllbnQgTm KiNLj1H1ZiNkp3BHDnqSii BX4iaXHnSAlpBf8pmEmleM csHM9wPPSg kfdfm731GdYwv5cpVOSzgJ BhYRfmHBO3U46yg4C2IXLq KEJkVDQ3gPP9wS6ueXjnng ogbGVmdDsg upEmbTqyYUtwAFokJ988SX RvcDsnPkJpcnRoIERhdGU6 EJ08CY08lXMcz3Q1uXI6R3 BhZGRpbmct zupgsLS9RDLwSSFfuS33Fu 9vyKyfWv7hEMMjESY4IPRz eFOhV9KrgE5fIcFxQSUcET FbZ9BsfTAq FYpnY295AQjvOvN4AWTarb CoA8ZrMEZblCrkSxH2l4L1 Us0WA5P3IY44UD17dQUiq5 A9qYW8S0Um BRAiqbzkynrmuSI5BNSuZZ DxyA68Ho4jmSadZn9dTZOe QLR3NNFxnWVxY1LgiO4sRo AjMDAwMDAw T6RomPPuZJliR710CRlaNm W8WHIuacCkP4DpPOZuaXns HhP9w5S0Bx1SGQd0QE95KY 33gFOzk9P4 pYV9G2ZoFPOpipxuhzjsaN J3EEIvTKJjiI26Mb2woMvp Kn6aZRBqGGT2GDJmyRMyE8 DcaD3kAaBi KJJrKQEvJ4UtuHEzUCuoQ2 73UZacVrG9AJAeraSkJ3Zp HKIezEdeYuK2f7K0Mh7DWR FjSR86UIX7 bCN9OX31AJ46J2EkPhixeM FibGU+PHRhYmxlIHdpZHRo INdpECXnFwLnvBftZD4zXu 9yZGVyLWNv dCpivVPfTsYfk0fsCBCiVC mtRE2cvTmgZ9FyxWV0CZFk p2n9Fr98W95yG7IckUQ+PG OvaKO5mXZ6 hS3hTcHrUcL4NAaoA491Ol LypAUeEyjbz5gwx3enpBx0 GdX4ISSskwSryHnnBZG3z7 ZtEx52K08v IHdpZHRoPSIxNSUiIHZhbG hqvj4ibM2cUo0+PGNvbCB3 zDX9iJ4iOmMzMhB9KZvnQ2 49InRvcCIv Uikvh4lcq9cndWj2XuCvAR JlzpZpfPojJCQ9m5AiWo74 Q0WdrKvmj5HsMja0gw18uS Apl1I5vXI5 F9OgJOAomtcviIMawEpoGB 9fVPYekizqJBFzjI0kUFQq M4c6PtDtXwK8FKwpO9Jwhr M6VPOchAJx XNgjJMU1L06cj7Z2GNEtVM LoTXB5eYQ9xI5drUofcglv bGVmdDsgdmVydGljYWwtYW ylR527UBSe mOdfGCQbyC9zCTNeoPJjgM qgSA6bMGSrccggBeOSEw7X AUmcBDXMRMm9E4BbMsu7SV WueCwpGN9j uTOqUUtwLw5qnBgzpRdfMN 7oMDDgjztxTUIetW2cKSKy bSDmpDsbQN4kHZDmvulul5 41VvNiPYN5 CRZnaFHbC5WhlF5sBzQxGH QyDKOvT4EbxQRrCPgpQ982 QZirObU5OHGsolQtT0PpZZ FsaWduOiB0 a4J0Xf9oUp5wFD7bSCmqJE 34NI91rLLkk7J4oRC1E0Bk LBLtypeuovzetWQ8BHXgJM PtdD79kGLq ZLpeCo8or4W1r268UQUbFS WjjW21Jf5kpQopFONexVJG zK7wjkiez7skuuqvLyCpDK YiHZa0HPx5 ETVohCftHqTnYFR0GuJ3UV O3bMOrtJ4mcTddqxitgT3m Oyc+GGlgBEXxacQ7Y2JcAa v0BHZemTbs PM8onPHtDJvgIv0dpTmvkS zrMZ2aYDVgwyamANGnwL7d VJOyxZHjeOscTA5lICMnwb esu290BuOw OPE1XRAhgARoP6NleS4jNq CsBLFjMORcA2VsiCXcVEoe V831HCwlElO2FVDwauStJ3 FsLWFsaWdu GeN1x3Q8Ht4ZKPmoWR98ZO 48sOKsd0R9pKQ5R9YlTUHx mtevvhyimIE6ZLPyXUMbfU 47cGFkZGlu Cg5rb9G7k928PWHaSNGxxG 43Rh3hsQrpOTYaqNCHwG9z kwdla2jhdrzaHlHmJDDwVB q7WLk4BPYx mQzdAfYkYFP7GiJ7DWA0hD OreA0zoYfrokxziZ5iBfh+ EiEijMUqiO7qND73ZK85X0 RyPjwvdGFi bGU+PHRhYmxlIHdpZHRoPS tcZGBxOyUgsEhbXT7cIn3s ZGVyLWNvbGxhcHNlOiBjb2 xsYXBzZTsg HI3ueQwkX2WjzOI9XUYxs0 f8Wt14M79dE8ZpuNI+PGNv qCZ2iHE0jI5nTyQqBdP3MA usV800InFm uBQpBbtsg5gsu5pxhRk0Vg StVKJbtyHfqCnjGXU2x3Bd Fc43J74nWClpJRYqIKAkEG UiIHZhbGln kg7hpG1dUq9+PUHxkOX0nQ N7wN2wPeVbWyK1ZCcsZ932 KxFcgQNiVaxeQ29lD2GdkW A+PHRyPjx0 CUUlmKjlMT0rnZIlZYljPl 7dADT7YjZkAuAdMHhtL6Ix OPJydvhgiprsgQB8AGNhTX RvaV59Aa2s zIwxIw1tEVSpTBQ5MGXtvQ HmZ6TicE7zYgKxVJXmQGQs P7MijANcNCcmJ919XHhpTm J0HSSuzrPl M3AhBASwcYpsXlO8y8P5Nb 7CmBircEKfZA4kSzLpOHo5 G6GmEsx7DAGoiDtaCS3jiC IbXFrbCc8x eWlfmGqnHT8lYXWagsgbl0 53KkBul3byFINbhWIjSDwz CAV8Y07dl7B7BCJgJIJhNP K9tPB0pK7c bGlnbjogbGVmdDsgdmVydG guAUsbVOjjE222YPWpwPqn PtWYGyv2E7XrMfk3EHZmrX ydFG8ecDFs VRerFo0yvOrbbPdkRK4nBW Kfwthwk008CvHtu7ilZKFt mGHkQPmvFMA3Q34pe0Y2DN MwMDAwMDA7 tWZ0dV2fqUdrhqsuyWWdhQ waloSxnMqwRXdkPLabA730 CVOnyMzfAh2QFkd1O5ClAs k5TMOldGxe ZD0mjMDuAUeyCr1fiKbrhG zmQE6cTATkyexnz309XwOx u3rtYBGguKAvGSblHMJ4A6 3ru5L5EIWa VHKgQZG6nIX0yS8seYeugf ogbGVmdDsgdmVydGljYWwt WQjqY380OPVnzMfzLiPrrJ VyOjwvdGQ+ BW03zm31S1NvSrvqKnp7VD NdBTV6oRW9jS8dCNCcDYyf q4X2yBR5Q2WuzcLyul3hn2 xsYXBzZTog Y29s (more content not included)... Normal [facility] Operative Reporton 9 Operative Report MR#: [id number] [facility] Pt. Name: Jose Norris Room #: 0C Discharge 07/23/2019 Date: Birthdate: 1975 OPERATIVE REPORT DATE OF SURGERY: 07/23/2019 SURGEON: Cosntance Morrison MD DRUPAL PHP DEVELOPER: Rachel Tran M.D. PREOPERATIVE DIAGNOSES: 1. Right [...] Morrison MD Date Trans: 07/25/2019 05:33 A/ham DN_JN:[id number] cc: Shan Green M.D. [address] [place] [facility] [id number] [place] [facility] POC GLUCOSE LABon 07-23-2019 Glucose [Mass/Vol] 90 mg/dL Normal 70-100 [facility] Comment on above: Performed By: #### [id number] #### [facility] [address] [place] [address], [facility] Encounters Encounter Date Encounter Type Care Provider Facility Start: 02-09-2023 End: 02-10-[address] SHAN GREEN . Facility:[facility] Start: 02-02-2023 End: 02-03-[address] SHAN GREEN . Facility:[facility] Start: 02-01-2023 End: 03-02-[address] SHAN GREEN . Facility:[facility] Start: 05-30-[address] SHAN GREEN . Facili ty:[facility] Start: 07-23-2019 End: 07-24-2019 Patient encounter procedure OSAMA ELATTAR Facility:[facility] Procedures Date Procedure Procedure Detail Performing Clinician Start: 07-23-2019 ANESTH KNEE JOINT SURGERY JAME PIERCE Start: 07-23-2019 KNEE ARTHROSCOPY/SURGERY OSAMA ELATTAR Start: 07-23-2019 KNEE ARTHROSCOPY/SURGERY OSAMA ELATTAR Payers Date Payer Category Payer Unknown [id number] 1975 Unknown [id number] 1975 Unknown [id number] [id number] 1975 Unknown [id number] 2.16.84 [id number] 1975 Unknown [id number] 2.16.84 [id number] 1959 Unknown [id number] 1961 Unknown [id number] 1961 Worker's Compensation [id number] Summary Purpose Family History No Family History Records FoundNo Family History Records FoundNo Family History Records Found Advance Directives No Advanced Directives Records FoundNo Advanced Directives Records FoundNo Advanced Directives Records Found Additional Source Comments (unrecognized sect ion and content) No Status Records FoundNo Status Records FoundNo Status Records Found INFORMATION SOURCE (unrecogn ized section and content) DATE CREATED AUTHOR 08/06/2019 [facility] DATE CREATED AUTHOR AUTHOR'S ORGANIZ ATION 05/10/2021 [facility] DATE CREATED AUTHOR AUTHOR'S ORGANIZ ATION 03/11/2023 [facility] RECORDS PERTAINING TO PATIENTS WHO ARE [...] BE BASED ON THE PRIMARY CLINICAL RECORDS. [facility] [employer] [facility]. provides no warranty or guarantee of the accuracy or completeness of information in this document.
== END 2024-02-17 08:05 | disposition home or self-care (01) ==
LOC: CT 08:04
PROVIDERS: PCP Family Medicine; Visit Provider Family Medicine
DX: Z00.00 Encounter for general adult medical examination without abnormal findings (principal); F17.200 Nicotine dependence, unspecified, uncomplicated; R91.8 Other nonspecific abnormal finding of lung field
CPT/HCPCS: 71271

== ENCOUNTER 2024-08-31 14:20 | Outpatient (OUT) | payer OTHER, SELFPAY ==
--- NOTE | 2024-08-31 | CT_ITS ---
[address] [address] Patient Name: MULU RODRIGUEZ MRN: [id number] date: 1975 Sex: M Assigned Patient Location: CT Current Patient Location: Accession/Order Number: [id number] Exam Date: 08/31/2024 14:30 Report Date: 09/03/2024 06:23 At the request of: SHAN PATTON Procedure: CT chest w con EXAMINATION: CT chest w con HISTORY: R91.11, Lung nodule follow-up COMPARISON: CT chest 02/17/2024 TECHNIQUE: Multi-planar CT images were obtained without and/or with IV contrast as indicated by examination type. Axial, Coronal, and Sagittal images. Dose reduction techniques were achieved by using automated exposure control and/or adjustment of mA and/or kV according to patient size and/or use of iterative reconstruction technique. FINDINGS: LUNGS: Multiple small nodules scattered within the lungs, largest is 7 mm. A few calcified nodules/granulomas. Slightly decreased number of nodular opacities compared to prior study. PLEURA: No mass, effusion, or pneumothorax. VASCULATURE: No abnormality. NEREYDA: Calcified right hilar lymph nodes suggestive chronic granulomatous disease. MEDIASTINUM: No mass or adenopathy. CARDIAC: No enlargement or pericardial thickening.. Coronary artery calcifications: AORTA: No aneurysm or dissection. CHEST WALL: No mass or axillary adenopathy. BONES: No bone lesion or fracture. LIMITED ABDOMEN: No suspicious findings Limited images of the upper abdomen. OTHER: Negative. CT/CT chest w con IMPRESSION: 1. Stable appearance of the remaining small nodules scattered within the lungs. Clearing of several previously seen nodular opacities. 2. Follow-up with CT lung cancer screening in one year. Electronically authenticated by: BETHANIE BUTTERFIELD Date: 09/03/2024 06:23
--- OUTSIDE RECORDS SUMMARY | 2024-08-31 14:22 | XMS_ITS | CCD ---
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 Name Role Phone SUSAN GARCIA Admitting Unavailable SUSAN GARCIA Attending Unavailable SHAN GREEN Referring Unavailable SHAN GREEN Primary Care Unavailable AK Procedure Practitioner Unavailab SUSAN Gray Surgeon Unavailable AK Procedure Practitioner Unavailab JAME Funez Surgeon Unavailable [...] Unavailable HOY ., DR TORREZ Attending Unavailable Medications Current Medications Medication Drug Class(es) Dates Sig (Normalized) Sig (Original) amLODIPine 10 mg oral tablet (1 source) Dihydropyridine Calcium Channel Willa Start: 06-07-2024 take 10 mg by mouth once daily Amlodipine Active 10 MG PO Daily June 07, 2024 12:00am aspirin 81 mg delayed release oral tablet (1 source) Platelet Aggregation Inhibitor, Nonsteroidal Anti-inflammatory Drug Start: 06-07-2024 take 81 mg by mouth once daily Aspirin Active 81 MG PO Daily June 07, 2024 12:00am atorvastatin 80 mg oral tablet (1 source) HMG-CoA Reductase Inhibitor Start: 06-07-2024 take 80 mg by mouth once daily Atorvastatin Active 80 MG PO Daily June 07, 2024 12:00am cephalexin 500 mg oral capsule (1 source) Cephalosporin Antibacterial Start: 06-07-2024 take 500 mg by mouth three times daily Cephalexin Active 500 MG PO Three times daily 21 7 June 07, 2024 12:00am clopidogrel 75 mg oral tablet (1 source) P2Y12 Platelet Inhibitor Start: 06-07-2024 take 75 mg by mouth once daily Clopidogrel Active 75 MG PO Daily June 07, 2024 12:00am erythromycin 0.005 mg/mg ophthalmic ointment (1 source) Macrolide, Macrolide Antimicrobial Start: 06-07-2024 Erythromycin Active 1 APPLIC EYE-RIGHT Four times daily 3.5 7 June 07, 2024 12:00am labetalol hydrochloride 100 mg oral tablet (1 source) beta-Adrenergic Willa Start: 06-07-2024 take 100 mg by mouth twice daily Labetalol Active 100 MG PO Twice daily June 07, 2024 12:00am lisinopril 10 mg oral tablet (1 source) Angiotensin Converting Enzyme Inhibitor Start: 06-07-2024 take 10 mg by mouth once daily Lisinopril Active 10 MG PO Daily June 07, 2024 12:00am tiZANidine 4 mg oral tablet (1 source) Central alpha-2 Adrenergic Agonist Start: 06-07-2024 take 8 mg by mouth once daily at bedtime Tizanidine Active 8 MG PO Daily at bedtime June 07, 2024 12:00am Problems Problem Classification Problem Date Documented Da [...] by: KHUSHBU DÍAZ Date: 2023-02-02 18:25 Normal [facility] Consent for COVID Vaccineon 02-12-2021 SARS-CoV-2 (COVID-19) RNA SEB+probe Ql (Unsp spec) [id number]#1. 00CD:127 Normal [facility] Consent for COVID Vaccineon 01-24-2021 SARS-CoV-2 (COVID-19) RNA SEB+probe Ql (Unsp spec) [id number]#1.0 0CD:127 [facility] Consent for Treatmenton 01-02 Consent for Treatment [id number]#1.0 0CD:127 [facility] Coding Summary.on 01-23-2021 Coding Summary. CD:[id number] Gh 0bWw+PGhlYWQ+HB1FVEUwY 60rxKXzyQ4CL2sHUU9BFQU RHYCPBF9UBO3amXM1XBjzM 2VybiAv VbdldCOrYL90CGc2BPQ8dJ ulXWayvL5weJOgV2k9UzYy DJ03wS64RMmsVDRgVtD6An ZpbjsgbWFy M3mxHfWzsZBzVxg+PHRhYm xlIHdpZHRoPScxMDAlJyBz nYkdTJ0jCb6eBNPcYCTmuT xhcHNlOiBj w2mdRTKdAAvlPO4zdLuvW1 MnhBZ3JVOlm5j0Ew41qNC+ LBIkSKX8cGdxHVkzg443Fr Qoj0luFVE9 jQDoFLolALL2C10oe4T1XC DvCDMnARJ2hXO7uI2teExn cmveB8BanLHgRvB3YDI1sQ JrqP4fmXgs ngyxyP8sBxt+A66RJS2FNZ SQVK0VKun9X0SwIctduRG+ VW08CIPcGD64jUMhbFZpr1 zzaYy4XjMk SPKiZXO4tEubPDvaa7VlYF RtW37zjHZzt0M9YZTsiSdb oQJwNbUwfON4lF3rFPzutk zny2fvrelr Mntgq6pggi54fG44V12cAP bgISIaYGD0QRWjHYGrzVig lw7fgP8hNh9+XYkui9jdq8 fbeBg0DuCr DJTzuzBopNvrXCZ4k8ElFj 09X4RoqJdtz8QdQzk0sp93 hVObi5U0zFG6DDibMEZzyO 5lPYayCaD9 HBHgAmLzoQ83cFDiPDixYl 9coSuufJaiRB8yVGNuqgzu UFHqzG7xHQHqcHOufQnpOY 4wNTBpbjtm l635AwLgXDY2CXPlbKVaU1 BkjB6rCkDsELXvWPUpS0Kw iRNzICdgF344UKneHaH8RG TjpjDjV8Ed IUPmmVrmBoC6w0J5Jr1Ox4 IjywzxLSG4DFesWIM5IvGz GyHrVsN5L8KnNhw1PRSpzB viHE8oK8Hy LPOyyxquwotddFG5OPCeMW ZonO50pOXfQUpiGz5kn7K9 f264JTUtPKKrnP98Qd0axA ogMTBwdCBU dF6afzteg0uzgoynBcWaSG AmJKu3JDx8CBBkpGpaBdMn ZCG6UbI7YAJ6hQUolV0lzU kcswhcjM0k Oyc+L73dtP1uXVM2APE7jt jcYAMdhwVrHD08VG03J6Ci PjwvdGFibGU+PGRpdiBzdH mtOY8nXgUo x9lrs8DvRJizV1HoRTVpPY voJsj0DQNiKAY5uNC4kJ2r ZWBzGZxrn7Y0rDE9T0Xzzx Ltjn0bf0cp VUViKNnfH14qqEIsx7Z9AV MufGD7OMMpyBgxEpPbtG58 Oyc+AUZvkLxgq6ToPuvtz8 pvn3rmtXs0 SaEiELAsrpAywYoeAGW0l4 MyZg33S42nMUxjHFYgGZUi PNCnNWHimZndoo2oxQ1mPk 8+PGNvbCB3 xXT1tQ6gPGQuGhH3MXadS2 47PiCfmEBuEvhap9ezi7um qJe3XwFwNKWbzqTwlPznXR O2z5ClAi59 B42dLIdbVXOoSTBgMVSgWJ BhuHmcku4ozJ5rEu4+PC9j q3licg82wU12jSU+PHRkIH J3dIhpQEhh JHLruC2oHTsyPjA4HPUdEk RtlX14vFSvKFvbDx8odRai hXpmJN2lDKQipyomc754Rr Eoc7arHKVv kCGcHIfgTSM7G89yh4J0GS OgWVJkKZI7kYM5uM9ysWdd bjogbGVmdDsgdmVydGljYW ysPEnbP478 IHRvcDsnPlBhdGllbnQgTm AmPIc3Y8FhVsv1KCJmuAwr KX3jwEJmDQbiWq4fxVoeaO gjXS2fYIZk ngryc353LyFds5iiHCJwrO NqYAnnJJL6H10up0V1WLJg WXJjSCO8yXI6nH6hfKitvx ogbGVmdDsg edGhmPrpSMhkWNmqM406SA RvcDsnPkJpcnRoIERhdGU6 MR54HS77uZSya8C0rEB5S3 BhZGRpbmct nyvecHI1MKDjQHGieI24Vx 4eaTnfSb0mHUIvQAF6EXNr lWGyD9UwlP4bQwLcUTJzAR DvG1ErtPCt LNhxG983EBlpRjL5KBWosk MxL3BbICWxiKtjTmG4d5J9 Ax8SW9Y5DE55BK81rGXii7 N3eLZ7K8Mo OLKbjgfeealcdHT3AEIrSC BokE96Ps9vcJuxHt8iNMHz YTK7CNRygVTiC9PgmZ7hAj AjMDAwMDAw F8QnhRMgVMuhA778MIfzJl T2DJVogwYtA4GwGGGecMwz XbW1e0O3Fv3SZKk3XL58AC 35rWZte2Z6 rBS7P5KbLRIxopoxjspziH F7GJVaBYCuhL02Ec6thEms Ln6qFNNoOLF6KPKipBAnU6 KmvT2iCwHz ZZNjLQBqE5QnhAZlFLqpH2 40YRkjTkA7FPKeljQcZ0Fq HYGvaXfzCuB9d7I6Me6UJY QkTK74UCY8 sWW2SB72KS61A3YgYqunbS FibGU+PHRhYmxlIHdpZHRo WWllLYCjMmJpyLfwLI1gRn 9yZGVyLWNv lVjvbGNqZuEmf8giINCfYV doIN3wlYmcS4RoaFQ0XILx v0a2Lg12G30gN4YevCK+PG QkyLZ3dZH0 hB7wUfThWsJ1MVjeS461Uw DglFGwDdwkw7eus2bjwMr7 ReZ4TIIlxbHhrWmvNLO6i8 CmPo94W75j IHdpZHRoPSIxNSUiIHZhbG qbfb6cpO3cXg5+PGNvbCB3 fWH8pC4nMoQgTqZ2ECldC8 49InRvcCIv Eajyg0hii8whdLq3YrDcMN FupbZjpZcuLCH9s5AzDp76 O0JyiLmdw9LlZby9mg73fZ Swm4Y3pLB8 L8WoFUOczzzloZYojFdoSK 8cEJWmtkttWBRxfK2jLVPy E2z2VoBvKiJ0NLtnJ7Kfif D0SERljJDh QLjmXVO5B35wv5F0DAHlWV HvSEX1tDF1iU4cpJlhatvo bGVmdDsgdmVydGljYWwtYW dzX549TPRd xJkeEVSavW2sOZGxcAPayK jfBE9yJYJdidpwHaXBNj1H AFadVDIFDQa8I9XwWaj2UN PruFycPN5v kGHvTEfnEg3ijExnfRfgVY 2oAALfehunGSUseV0zUMVv mAWsmAseUH7uLFFuoiwbl8 19CmVtRVX7 TIIlgCVrU4KadK6qNuNzZZ JeSNOoM7UiiADiHYneG054 SUegWhV7MWWcvrRkB8AqMA FsaWduOiB0 a2F7Og7vSz2dRC7rXVmlXV 71KX93lSOrc4I3bLN9I3Hn HKDtmsvpujvudEU6AKMuVI GbhM43rJBf QClqOy4dk4D4n163NQTvSH TpcR18Gd0gkVirLZMnxECP wP1qywpfe0fsonasDxIdGI NpENs3GDr2 KGRyfOrcJvQsMNZ6IzD5ZU H2kUJppK6fpLjarhugwT7g Oyc+DQpdPWEhfkX3Q9ZjSy c7BWBwlLtc KZ5bmSRvRQscIf4jmKfqyD xdFK6cZLYuboazFKNxvW8l GKIjfBHqzUshBS8vALXicb yro499YyUr ODZ7JOFjsFMxK8LfbM1cBr YsFJSvNTRxN2WgaDUmNKep F338QUxkSkK8DSOporEsY6 FsLWFsaWdu AfG0b8Y2Kf2QFHvpIP65OH 23rLAww0K4pNF3I6DyJMHv nsvhkjhqrCP9XSTuWPZwjY 47cGFkZGlu Nu3el1D5q788SCTxOVMsbY 09Xk6mlNjmSNHbpKRWtO6r ifsnz4fnnakiSoQeHDOjUR c8HAl2GYUl pOwrWhIzZHC7HfC8VSI5gO CqdM8mhZxqugzyzS2bIak+ DwCgqOEkxA2sHE81YY86P2 RyPjwvdGFi bGU+PHRhYmxlIHdpZHRoPS xdNESaJiVfhMdyCA2oWf5e ZGVyLWNvbGxhcHNlOiBjb2 xsYXBzZTsg YU8vmIubO3BmlUC3GLUih5 d8Qv08J69zL3AugMM+PGNv yZR5rVU7tB9zDbCkNmT2EY kiO939FhWy gRKrKveac6hlc3hfmJp0Kj EuKEOebgMwrApkPSF5h5Yb Ej77F24vOTmjBTJfLXYeSV UiIHZhbGln ny8mkC1sYn8+TSQvvBS7aB Z8jO9lWuRjTgH2FTvzZ174 SdYqkHStLmyuW17rP0EkjJ A+PHRyPjx0 TJQhjMbwYI9jjVOdGDyxOi 7wDXC5RmXmCrQhOFixL6Wk FULlsxalxdotvCJ7HUUeYL GkvI80Mw9d hKasNy1wSJZpJDI1WBBdjR BgF0MugX7cGnDrGXIwYXVn H6VgaVZlWYnvU830AMheGl T1FHDiapQr J2EoQOKwzZotIpH3c2U7Aa 0KvXyfgOIeVX8aWzUgGOi5 I5KrEle8XWFzaUxeJV1rcU XpRTkyXg6x iOsbzAmzJM6vHOQikumhz6 76QqJvs7ufUCJfqVVjGQvm JLM0V34ls5X4VAKqYGMeNQ D2yUK6jX8y bGlnbjogbGVmdDsgdmVydG ynVInjVRxvO343OTTwpSxi MbENKcq1T5NzGpx7FPWvrN ptOZ2fvHPt ACsePt9lbWatmMjuPV6jNM Qnlabjc084SxFve1ocYVTy nYAmXTcyXWN1J44ae1S1PI MwMDAwMDA7 cIR4qO2tnYkevbcxgNOnoU xbriJabAsgEEbqNFnjI821 LKFkmSrpMc2CMzg9J3MgUx a1HLJwfGdz AK2uzUFaUYqoUt2giYrseQ zyFM5xEJVreeqbt776ElHt z4ejIUIiqPZhKHrxNBY5Y1 2ul9C7NPYx LZJqKOJ3mTT0bI3aqYvksk ogbGVmdDsgdmVydGljYWwt PXxnY696QMNumYqyOyGjqP VyOjwvdGQ+ EE37qe59J8MsVmgvReb7BI CxJIP2qWQ9oE7zFEVgIGuh q3F3ySV7F9XrjgVbtt7jh1 xsYXBzZTog Y29s (more content not included)... Normal [facility] Operative Reporton 07-25-201 9 Operative Report MR#: [id number] [facility] Pt. Name: Jose Norris Room #: 0C Discharge 07/23/2019 Date: Birthdate: 1975 OPERATIVE REPORT DATE OF SURGERY: 07/23/2019 SURGEON: Susan Garcia MD RESEARCH HOME ECONOMIST: Rachel Tran M.D. PREOPERATIVE DIAGNOSES: 1. Right [...] clinic within 2 weeks. Electronically Signed by: Susan Garcia MD 08/05/2019 08:12 P Susan Garcia MD Date Dict: 07/24/2019/09:31 P/Susan Garcia MD Date Trans: 07/25/2019 05:33 Erik/ham DN_JN:[id number] cc: Shan Green M.D. [address] [place] [address] Normal [facility] POC GLUCOSE LABon 07-23-2019 Glucose [Mass/Vol] 90 mg/dL Normal 70-100 [facility] Comment on above: Performed By: #### [id number] #### [facility] [address] Vital Signs Date Time Vital Sign Value Performing Clinician Yovany braswell 06-07-2024 10:49-0400 Body height 175.26 cm [facility] 06-07-2024 10:49-0400 Body mass index (BMI) [Ratio] 28.6 kg/m2 [facility] 06-07-2024 10:49-0400 Body temperature 99.2 [degF] [facility] 06-07-2024 10:49-0400 Body weight 88.05 kg [facility] 06-07-2024 10:49-0400 Diastolic blood pressure 79 mm[Hg] [facility] 06-07-2024 10:49-0400 Heart rate 63 /min [facility] 06-07-2024 10:49-0400 Respiratory rate 18 /min [facility] 06-07-2024 10:49-0400 SaO2% (BldA) [Mass fraction] 97 % [facility] 06-07-2024 10:49-0400 Systolic blood pressure 135 mm[Hg] [facility] Encounters Encounter Date Encounter Type Care Provider Facility Start: 06-07-2024 End: 06-07-[address] [facility] Work Phone: Start: 06-07-2024 End: 06-07-2024 Patient encounter procedure [facility] [place] Work Phone: Start: 02-09-2023 End: 02-10-[address] SHAN GREEN . Facility:[facility] Start: 02-02-2023 End: 02-03-[address] SHAN GREEN . Facility: Start: 02-01-2023 End: 03-02-[address] SHAN GREEN . Facility:[facility] Start: 05-30-[address] SHAN GREEN . Facili ty:[facility] Start: 07-23-2019 End: 07-24-2019 Patient encounter procedure OSAMA ELATTAR Facility:[facility] Procedures Date Procedure Procedure Detail Performing Clinician Start: 07-23-2019 ANESTH KNEE JOINT SURGERY JAME EASTONKINS Start: 07-23-2019 KNEE ARTHROSCOPY/SURGERY OSAMA ELATTAR Start: 07-23-2019 KNEE ARTHROSCOPY/SURGERY OSAMA ELATTAR Payers Date Payer Category Payer Unknown [id number] 1975 Unknown [id number] 1975 Unknown [id number] 1975 Unknown [id number] 1975 Unknown [id number] 1961 Unknown [id number] 1961 Unknown [id number] 1961 Worker's Compensation [id number] Private Health Insurance [facility] [id number] Social History Date Type Detail Facility Start: 02-15-2023 Tobacco smoking stat [facility] Smoker (finding) [facility] Start: 1975 Sex Assigned At Male [facility] Evaluation note Note Date & Type Note Facility Evaluation note No assessment information availa [facility] Work Phone: Summary Purpose Family History No Family History Records FoundNo Family History Records FoundNo Family History Records Found Advance Directives Advance Directive Response Recorded Date/ Time Advance Directives No June 10:38am Chief Complaint and Reason for Visit Chief Complaint Right eye irritation , redness Additional Source Comments (unrecognized sect ion and content) No Status Records FoundNo Status Records FoundNo Status Records Found INFORMATION SOURCE (unrecogn ized section and content) DATE CREATED AUTHOR 08/06/2019 [facility] DATE CREATED AUTHOR AUTHOR'S ORGANIZ ATION 05/10/2021 [facility] DATE CREATED AUTHOR AUTHOR'S ESSIE ATION 03/11/2023 [facility] Care Teams (unrecognized sec tion and content) Team Status: Active Member Role Status Dates Shan Green MD Primary Care Provider Active Team Status: Inactive Member Role Status Dates Shan Green MD Primary Care Provider Active Start: June 07, 2024 End: June 07, 2024 Mariama Field APRN Attending Provider Active Start: June 07, 2024 End: June 07, 2024 Goals (unrecognized section and content) Goals may be documented in a n alternate section FOR RECORDS PERTAINING TO PATIENTS WHO ARE [...] BE BASED ON THE PRIMARY CLINICAL RECORDS. [employer] provides no warranty or guarantee of the accuracy or completeness of information in this document.
== END 2024-08-31 14:21 | disposition home or self-care (01) ==
LOC: CT 14:20
PROVIDERS: PCP Family Medicine; Visit Provider Family Medicine
DX: R91.1 Solitary pulmonary nodule (principal)
CPT/HCPCS: 71260; Q9967

== ENCOUNTER 2025-09-30 10:24 | Outpatient (OUT) | payer OTHER, SELFPAY ==
--- OUTSIDE RECORDS SUMMARY | 2025-09-30 10:27 | XMS_ITS | Clinical Summary ---
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
--- OUTSIDE RECORDS SUMMARY | 2025-09-30 10:27 | XMS_ITS | Patient Health Record ---
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 Name Role Phone Michael Green Primary Care Provider [phone] Allergies No Known Allergies Reason For Referral No Information Medications Medication SIG (Take, Route, Frequency, Duration) Notes Start Date End Date Status Labetalol HCl 100 MG TAKE 1 TABLET BY MOUTH TWIC E A DAY; Duration: 90 ActivetiZANidine HCl 4 MGTAKE 2 TABLETS BY MOUTH AT BEDTIME; Duration: 90Active amLODIPine Besylate 10 MGTAKE 1 TABLET BY MOUTH EVERY DAY; Duration: 90 days ActiveCialis 20 MG1 tablet as needed Orally Once a dayActiveAtorvastatin Calcium 80 MGTAKE 1 TABLET BY MOUTH EVERYDAY AT BEDTIME; Duration: 90ActiveAspirin Low Dose 81 MGTAKE 1 TABLET BY MOUTH EVERY DAY; Duration: 90 daysActiveDiclofenac Sodium 75 MGTAKE 1 TABLET BY MOUTH TWICE A DAY; Duration: 30ActiveLisinopril 10 MGTAKE 1 TABLET BY MOUTH EVERY DAY FOR 30 DAYS; Duration: 90ActiveClopidogrel Bisulfate 75 MGTAKE 1 TABLET BY MOUTH EVERY DAY FOR 90 DAYS; Duration: 90Active Social History Tobacco Use: Social History Observation Description Date Details (start date - stop date) Current Smoker 10/03/1991 - NA Tobacco Use/Smoking Question Answer Notes Patient is a current smoker When did you start smoking?10/03/1991How often do you smoke cigarettes?every day How many cigarettes a day do you smoke?11-20How soon after you wake up do you smoke your first cigarette?after 60 minutesAre you interested in quitting? Thinking about quittingAUDIT-C (Standard) Question Answer Notes Did you have a drink containing alcohol in the p ast year? No Dbqees9XrpwdvsnblngiaTptgxfpv Problems Problem Type SNOMED Code ICD Code Onset Dates Problem Status W/U Status Risk Notes Problem Tobacco user (578476051) Nicotin e dependence, unspecified, uncomplicated (F17.200) ActiveconfirmedProblemVentricular fibrillation (94530469)Ventricular fibrillation (I49.01)ActiveconfirmedProblemAcute frontal sinusitis (16840835) Acute recurrent frontal sinusitis (J01.11)ActiveconfirmedProblemPain of right knee region (finding) (945217718355603)Pain in right knee (M25.561)Active confirmedProblemPain of left knee joint (finding) (016098230338317)Pain in left knee (M25.562)ActiveconfirmedProblemSnoring (44648671)Snoring (R06.83)Active confirmedProblemTear of medial meniscus of knee (791945463)Other tear of medial meniscus, current injury, right knee, subsequent encounter (S83.241D)Active confirmedProblemPresence of coronary angioplasty implant and graft (Z95.5)Active confirmedProblemCervical radiculopathy (14881365)Cervical radiculopathy (M54.12) ActiveconfirmedProblemEssential hypertension (41685076)Essential hypertension (I10)ActiveconfirmedProblemEczema (30170202)Eczema (L30.9)ActiveconfirmedProblem Degeneration of cervical intervertebral disc (92321519)Degenerative disc disease, cervical (M50.30)ActiveconfirmedProblemPain of right knee region (finding) (236436761662207)Knee pain, right (M25.561)ActiveconfirmedProblemAcute bronchitis (44054900)Acute bronchitis (J20.9)ActiveconfirmedProblemWell adult (912924094)Well adult (Z00.00)ActiveconfirmedProblemSolitary nodule of lung (835109688)Lung nodule (R91.1)ActiveconfirmedProblemLeg pain (46179618)Leg pain (M79.606)ActiveconfirmedProblemCardiac arrest (315747545)Cardiac arrest (I46.9) ActiveconfirmedProblemOverweight (179254231)Over weight (E66.3)Activeconfirmed ProblemArthralgia of the upper arm (905635896)Right elbow pain (M25.521)Active confirmedProblemImpingement syndrome of shoulder (850951683)Impingement syndrome of shoulder (M75.40)ActiveconfirmedProblemParonychia of finger (123188534) Paronychia of finger (L03.019)ActiveconfirmedProblemOsteoarthritis (558289133) Other type of osteoarthritis (M19.90)ActiveconfirmedProblemDisease caused by Severe acute respiratory syndrome coronavirus 2 (disorder) (045572539)COVID-19 virus infection (U07.1)Activeconfirmed Vital Signs Blood pressure diastolic 80 mm Hg 04/29/2025 Xeecjy47.5 in04/29/2025lood pressure mm Hg04/29/20256835Elevqt204 lbs 04/29/2025BMI32.81 kg/m204/29/2025 Encounters Encounter Location Date Provider Diagnosis [address] [address] 04/22/[address] [address] 05/19/[address]25Michael [address] [address]/02/2025Doug HoyLung nodule R91.1B[address] [address]/28/2025Doug NormaWell adult Z00.00 Assessments Encounter Date Diagnosis (ICD Code) Assessment Notes Treatment Notes Treatment Clinical Notes Section Notes 04/29/2025 Well adult (ICD-10 - Z00.00) 09/03/2025Lung nodule (ICD-10 - R91.1) Plan Of Treatment Pending Test Test Name Order Date Double Contrast Barium Enema 02/01/2023 CMP (COMPLETE METABOLIC PANEL) 3 CMP (COMPLETE METABOLIC PANEL) 4 HEMOGLOBIN A1C (GLYCO) 02/14/2024 HEMOGLOBIN A1C (GLYCO) 04/29/2025 INSULIN, TOTAL 04/29/2025 INSULIN, TOTAL 02/14/2024 LIPID PANEL (CHOL/TRIG/HDL/LDL) 02/14/20 24 LIPID PANEL (CHOL/TRIG/HDL/LDL) 04/29/20 25 CBC WITH DIFF (EXP 08/2025) 02/14/2024 PSA, PROSTATE-SPECIFIC ANTIGEN 4 PSA, PROSTATE-SPECIFIC ANTIGEN 3 CT Knee LT w/contrast (Optional 3D Rende ring) 02/14/2024 T3 FREE, T4 FREE and TSH 09/28/2023 Sleep study - Diagnostic Polysonogram STOOL OCCULT BLOOD 02/14/2024 CA 19-9 02/14/2024 CEA 02/14/2024 CT CHEST W CON 09/03/2025 XR CHEST 2 V 09/27/2023 THYROID PANEL (T4/TSH/FREE T3) 5 THYROID PANEL (T4/TSH/FREE T3) 4 PSA, SCREENING 04/29/2025 CMP (COMP MET HAGEN) w/eGFR CKD-EPI 2024 CBC WITH DIFF 04/29/2025 Insurance Providers Payer Name Payer Address Payer Phone Subscriber Number Group Number Insured Name Patient Relationship to Insured Coverage Start Date Coverage End Date [facility] [address] [address] [place] [phone] [id number] Todd Norrsi - patient is the insured Medications Administered Medication Instructions Date of Administration Dosage Notes Kenalog-40 60 mgKenalog 80 gm with 1 cc lidocaine in each kneeKetorolac Tocnuuoyrvos18/31/202360 of39Pjosmaluledo Wvglkzh45 mg60 Medical (General) History Medical History History ICD Code Impingement syndrome of shoulder M75.40 Cervical radiculopathy M54.12 Over weight E66.3 COVID-19 virus infection U07.1 Acute recurrent frontal sinusitis J01.11 Acute bronchitis J20.9 Knee pain, right M25.561 Other tear of medial meniscu s, current injury, right knee, subsequent encounter S83.241D Paronychia of finger L03.019 Other type of osteoarthritis M19.90 Well adult Z00.00 Presence of coronary angioplasty implant and graft Z95.5 Ventricular fibrillation I49.01 Cardiac arrest I46.9 Degenerative disc disease, cervical M50. 30 Essential hypertension I10 Eczema L30.9 colonic polyps Surgical History Surgery Date(Month/Year) Cardiac Stent Placement 2017 Right knee surgery Truhaniogsc1708Onspvqgjqyvtfsk History Reason Date(Month/Year) See above
--- OUTSIDE RECORDS SUMMARY | 2025-09-30 10:33 | XMS_ITS | CCD ---
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 Name Role Phone CONSTANCE GARCIA Admitting Unavailable CONSTANCE GARCIA Attending Unavailable SHAN GREEN Referring Unavailable SHAN GREEN Primary Care Unavailable PA Procedure Practitioner Unavailab CONSTANCE Gray Surgeon Unavailable PA Procedure Practitioner Unavailab JAME Funez Surgeon Unavailable [...] DR TORREZ Attending Unavailable Medications Current Medications MedicationDrug Class(es)DatesSig (Normalized)Sig (Original)amLODIPine 10 mg oral tablet (1 source)Dihydropyridine Calcium Channel BlockerStart: 13-81-1863iyax 10 mg by mouth once dailyAmlodipine Active 10 MG PO Daily June 07, 2024 12:00am aspirin 81 mg delayed release oral tablet (1 source)Platelet Aggregation Inhibitor, Nonsteroidal Anti-inflammatory Drug Start: 98-99-8660gmum 81 mg by mouth once dailyAspirin Active 81 MG PO Daily June 07, 2024 12:00amatorvastatin 80 mg oral tablet (1 source)HMG-CoA Reductase InhibitorStart: 64-02-6872rmud 80 mg by mouth once dailyAtorvastatin Active 80 MG PO Daily June 07, 2024 12:00amcephalexin 500 mg oral capsule (1 source)Cephalosporin AntibacterialStart: 39-83-6465duaj 500 mg by mouth three times dailyCephalexin Active 500 MG PO Three times daily 21 7 June 07, 2024 12:00amclopidogrel 75 mg oral tablet (1 source)P2Y12 Platelet InhibitorStart: 98-28-6814ivjk 75 mg by mouth once dailyClopidogrel Active 75 MG PO Daily June 07, 2024 12:00amerythromycin 0.005 mg/mg ophthalmic ointment (1 source)Macrolide, Macrolide AntimicrobialStart: 37-27-7633Szhjduuajplr Active 1 APPLIC EYE-RIGHT Four times daily 3.5 7 June 07, 2024 12:00amlabetalol hydrochloride 100 mg oral tablet (1 source)beta-Adrenergic BlockerStart: 27-62-0373ipfd 100 mg by mouth twice dailyLabetalol Active 100 MG PO Twice daily June 07, 2024 12:00am lisinopril 10 mg oral tablet (1 source)Angiotensin Converting Enzyme InhibitorStart: 96-10-4870pfhh 10 mg by mouth once dailyLisinopril Active 10 MG PO Daily June 07, 2024 12:00am tiZANidine 4 mg oral tablet (1 source)Central alpha-2 Adrenergic AgonistStart: 67-91-2963pusj 8 mg by mouth once daily at bedtimeTizanidine Active 8 MG PO Daily at bedtime June 07, 2024 12:00am Problems Problem ClassificationProblemDateDocumented DateEpisodic/ChronicOther non- traumatic joint disorders (4 sources)Pain in right elbow; Translations: [PAIN IN RIGHT ELBOW]Onset: 93-55-8832PmbayvwcBklhinlg codes; unclassified (4 sources)Obstructive sleep apnea (adult) (pediatric); Translations: [OBSTRUCTIVE SLEEP APNEA]Onset: 86-25-0449Zvzjcyk Results Test NameValueInterpretationReference RangeFacilityXR ELBOW RT MIN 3 VIEWSon 90-92-8633YJ ELBOW RT MIN 3 VIEWSEXAM: XR ELBOW RT MIN 3 VIEWS HISTORY: [...] Electronically authenticated by: KHUSHBU DÍAZ Date: 2023-02-02 18:25[facility] Vaccineon 06-32-9616YABG-CoV-2 (COVID-19) RNA SEB+probe Ql (Unsp spec)[id number]#1.00CD:[address] [facility] 01-24-2021 SARS-CoV-2 (COVID-19) RNA SEB+probe Ql (Unsp spec) [id number]#1.00CD:[address] [place], [place] [address]sent for Treatmenton 68-31-6548Fetwgvv for Treatment [id number]#1.00CD:[address] [place], [place] [address]Coding Summary.on 06-81-5969Jqpknr Summary. CD:[id number]:8617272IKy2fWm+PGhlYWQ+HQ4YFKDnQ35pnCAloU4JE1gNFU7PPLLNGMXGIZ1XSU8jw EH0XYvaC6NrdqFq [file] Y29s (more content not included)...[facility] GlenbeighOperative Reporton 83-83-8963Dfnsbhcji ReportMR#: [id number] [facility] Pt. Name: Jose Norris Room #: 0C Discharge 07/23/2019 Date: Birthdate: 1975 OPERATIVE REPORT DATE OF SURGERY: 07/23/2019 SURGEON: Constance Garcia MD MALLET CUTTER: Rachel Tran M.D. PREOPERATIVE DIAGNOSES: 1. Right [...] within 2 weeks. Electronically Signed by: Constance Garcia MD 08/05/2019 08:12 P Constance Garcia MD Date Dict: 07/24/2019/09:31 P/Constance Garcia MD Date Trans: 07/25/2019 05:33 A/ham DN_JN:[id number] cc: Shan Green M.D. [address] [place] [address]XmdadrKhfParkwood Hospital GLUCOSE LABon 77-57-4953Azruvqy [Mass/Vol]90 mg/gGHlwfvh78-440Eal [facility] DaytonComment on above:Performed By: #### [id number] #### [facility] [address] Vital Signs Date TimeVital SignValuePerforming YbxocvlteJqayrrof90-16-3129 10:49-0400Body dublhj043.26 [facility]Way[facility]-2024 10:49-0400Body mass index (BMI) [Ratio]28.6 kg/r1OwhlgmknxWayne Healthcare [facility] Campus09-05-2024 10:49-0400Body kaehyvicuxc11.2 [degF][facility]09-05-2024 10:49-0400Body srgfdi24.05 kgWay[facility]09-05-2024 10:49-0400Diastolic blood uhajyytf22 mm[Hg][facility] 06-07-2024 10:49-0400Heart rate63 /[facility] 06-07-2024 10:49-0400Respiratory rate18 /[facility] 06-07-2024 10:49-4805PwS5% (BldA) [Mass fraction]97 %[facility]09-05-2024 10:49-0400Systolic blood ngftzneh450 mm[Hg][facility] Encounters Encounter DateEncounter TypeCare ProviderFacilityStart: 06-07-2024 End: 13-69-5875erbzadmcakVtpyfdqagFulton County Health Center Work Phone: Start: 06-07-2024 End: 81-08-7016Koqytub encounter procedureDavis [facility] [place] Work Phone: Start: 02-09-2023 End: 57-10-9947dlkeyfksizIQ DOUGLAS HOY .Facility:U9Jpnhw: 02-02-2023 End: 68-16-7505rnjoarmzdnFJ DOUGLAS HOY .Facility:T8Lmovl: 02-01-2023 End: 62-69-8531deswnougpgWY DOUGLAS HOY .Facility:Y9Wmmdi: 10-27-0919zzozfmgbhl DR SHAN GREEN .Facility:U3Prpog: 07-23-2019 End: 20-47-5485Adnqgvi encounter procedureOSAMA ELATTARFacility:[facility] Procedures DateProcedureProcedure DetailPerforming ClinicianStart: 16-13-9023GLMOMN KNEE JOINT SURGERYKISHIELA PIERCEStart: 10-24-0595YQNY ARTHROSCOPY/SURGERYOSAMA ELATTARStart: 38-72-5742ECBO ARTHROSCOPY/SURGERYOSAMA ELATTAR Payers DatePayer CategoryPayerPolicy [id number] [id number] [id number] [id number]'s [id number] Health InsuranceMercy Health St. Elizabeth Boardman [id number] [id number] Social History DateTypeDetailFacilityStart: 61-50-6974Yhinivz smoking status NHISSmoker (finding)[facility] Hospitaltart: 12-06-[facility]19Yyl Assigned At [facility] Evaluation note Note Date & TypeNoteFacilityEvaluation noteNo assessment information available [facility] Work Phone: Summary Purpose Family History [...] section and content) DATE CREATED AUTHOR 08/06/2019 [facility] DATE CREATED AUTHOR AUTHOR'S ORGANIZ ATION 05/10/2021 [facility] DATE CREATED AUTHOR AUTHOR'S ORGANIZ ATION 03/11/2023 [facility] Care Teams (unrecognized sec tion and content) Team Status: Active Member Role Status Dates Shan Green MD Primary Care Provider Active Team Status: Inactive Member Role Status Dates Shan Green MD Primary Care Provider Active Start: June 07, 2024 End: June 07, 2024Rayna Tafoya ProviderActiveStart: June 07, 2024 End: June 07, 2024 [...] BE BASED ON THE PRIMARY CLINICAL RECORDS. [facility] [employer] [facility]. provides no warranty or guarantee of the accuracy or completeness of information in this document.
--- NOTE | 2025-09-30 10:42 | CT_ITS ---
The [address] [address] Patient Name: MULU RODRIGUEZ MRN: [id number] date: 1975 Sex: M Assigned Patient Location: CT Current Patient Location: CT Accession/Order Number: [id number] Exam Date: 09/30/2025 10:39 Report Date: 09/30/2025 11:39 At the request of: SHAN PATTON MD Procedure: CT chest w con CT CHEST WITH INTRAVENOUS CONTRAST: CLINICAL HISTORY: Follow-up nodularity. Tobacco use. COMPARISON: 08/31/2024 TECHNIQUE: Spiral images were obtained through the chest following intravenous administration of 100 mL of Omnipaque 300. Images were reviewed using both narrow and wide window settings. This CT exam was performed using one or more following dose reduction techniques: Automated exposure control, adjustment of the mA and/or kV according to patient size, or use of iterative reconstruction technique. FINDINGS: The heart is not enlarged. There is no pericardial effusion. There is coronary artery disease. No aortic aneurysm or dissection is seen. There are similar noncalcified mediastinal and right hilar calcified nodes. A tiny hiatal hernia is present. There is subtle dextroscoliotic curvature and moderate endplate spurring at the spine. Minimal basilar scarring or atelectasis is seen. There is no additional consolidation, pleural effusion or pneumothorax. A calcified right lower lobe granuloma is again seen. There is a similar size 7 mm right lower lobe nodule on axial image 63. A 6 mm nodule is again visualized within the right middle lobe adjacent to the minor fissure on axial image 56 which might be an intrapulmonary lymph node.. There is also another suspected intrapulmonary lymph node within the right lower lobe along the major fissure on axial image 52. A potential intrapulmonary lymph node within the right upper lobe adjacent to the top of the major fissure on the prior is no longer identified. The pleural-based nodular density at the posterior right upper lobe on axial image 20 is also unchanged. Limited cuts through the upper abdomen show calcified splenic granulomas. CT/CT chest w con IMPRESSION: SIMILAR NODULARITY INCLUDING INTRAPULMONARY LYMPH NODES AND CALCIFIED GRANULOMA. ANNUAL LOW-DOSE SCREENING FOLLOW-UP IS SUGGESTED. NO ACUTE FINDINGS. Impression dictated by: Shira Salazar M.D. 09/30/2025 11:39 AM Dictation Location: [place] [address] Electronically authenticated by: [id number] Y Date: 09/30/2025 11:39
== END 2025-09-30 10:25 | disposition home or self-care (01) ==
PROVIDERS: PCP Family Medicine; Visit Provider Family Medicine
DX: R91.1 Solitary pulmonary nodule (principal)
CPT/HCPCS: 71260; Q9967